=== PATIENT | male | born 1970 | race Caucasian/White ===

== ENCOUNTER 2020-07-07 14:57 | Emergency (ER) | payer BC, SELFPAY ==
[2020-07-07 15:16] VITALS: BP 142/91; PULSE 84; RESP 16; TEMP 36.8; O2SAT 98
--- NOTE | 2020-07-07 15:43 | ED.GENADULT ---
HPI - General Adult General Chief complaint: Upper Respiratory Infection Stated complaint: sore throat Time Seen by Provider: 07/07/20 15:43 Source: patient and RN notes reviewed Mode of arrival: ambulatory Limitations: no limitations History of Present Illness HPI narrative: 50-year-old (-) male presents with complaints of sore throat for 1 day. No treatment. No high fevers, drooling, neck or throat swelling. Pain is bilateral, mostly on the LT side. Hurts to swallow. Exacerbation factors consist of eating and drinking. No rhinorrhea. Nasal congestion. No voice change. No nausea, vomiting, or abdominal pain. Tolerating liquids well. Denies chills, dyspnea, difficulty swallowing, jaw pain, dental pain, facial pain, foreign body sensation, and rash. Remains active. The patient reports he have not been diagnosed with COVID-19. The patient reports he is not waiting for the results of a COVID-19 lab test. The patient reports he do not have fever, chills, weakness, fatigue, myalgia, or facial swelling. The patient reports he do not have a new or worsening cough or shortness of breath. Denies chest pain. The patient reports he do not have any loss of taste, and diarrhea. Denies recent traveling. Denies concerns for COVID-19 or exposures been home with limited outdoor exposure except for essential household needs, work, and return home. At this time, patient is not suspected of having COVID-19. Some parts of this dictation were generated by voice recognition software and may contain typographical and/or grammatical inaccuracies. Related Data Home Medications Medication Instructions Recorded Confirmed amlodipine 07/07/20 glipizide mg 07/07/20 hydrochlorothiazide 07/07/20 losartan 07/07/20 metformin mg 07/07/20 Allergies Allergy/AdvReac Type Severity Reaction Status Date / Time Penicillins Allergy Intermediate Rash Verified 09/23/18 16:54 Review of Systems Review of Systems: Narrative: CONSTITUTIONAL: Denies fever, chills, sweats. EYES: Denies visual changes, redness, discharge. ENT: Denies rhinorrhea, otalgia. Complains of sore throat, congestion. CARDIOVASCULAR: Denies chest pain, palpitations, edema. RESPIRATORY: Denies dyspnea, wheezing, cough. GASTROINTESTINAL: Denies abdominal pain, nausea, vomiting, diarrhea. GENITOURINARY: Denies dysuria, hematuria, abnormal discharge. SKIN: Denies rash or itching. MUSCULOSKELETAL: Denies acute back pain, joint pain, or myalgia. NEUROLOGIC: Denies numbness or focal weakness. PSYCHIATRIC: Denies anxiety or depression. All systems reviewed & are unremarkable except as noted in HPI and below. FOR[facility]LY [facility], LATER [facility] Past Medical History Medical History (Updated 07/08/20 @ 00:00 by Cristina Pacheco) Diabetes Hypertension Surgical History Surgical History (Updated 07/07/20 @ 15:53 by ABRAM Covarrubias) No significant past surgical history Family History Family History (Updated 07/07/20 @ 15:55 by ABRAM Covarrubias) Father , at age 49 Brain aneurysm Mother , had 2 episodes of cancer unknown type to patient Cancer Social History Social History (Updated 07/07/20 @ 15:55 by ABRAM Covarrubias) Smoking status: Never smoker Tobacco type: cigarettes Second hand tobacco smoke exposure: No Alcohol intake: never Substance use: never Living arrangements: with family Occupation/Education: occupation Gender identity (if verbalized by the patient): Male Sexual Orientation (if Verbalized by the Patient): Straight or Heterosexual Comments At time of signature, agree with nurse past medical, surgical, social, and family history. There is no relevant family history pertinent to the presenting complaint. Exam Narrative: Exam Narrative: GENERAL: This is a well-nourished, well-developed patient, in no apparent distress. Speaks in full sentences without deficits and ambulates with steady gait with
== END 2020-07-07 16:05 | disposition home or self-care (01) ==
PROVIDERS: Emergency Provider Nurse Practitioner Family
DX: J02.9 Acute pharyngitis, unspecified (principal); Z20.828 Contact with and (suspected) exposure to other viral communicable diseases; E11.9 Type 2 diabetes mellitus without complications; I10 Essential (primary) hypertension
CPT/HCPCS: 87081; 87804; 87880; 99213; G0463

== ENCOUNTER 2021-12-30 16:39 | Observation (INO) | payer OTHER, SELFPAY ==
[2021-12-30] VITALS (22 sets, daily range): BP systolic 112–140; BP diastolic 58–95; PULSE 77–112; RESP 9–24; TEMP 36.6–37; O2SAT 95–100; BMI 55.2
--- NOTE | ~2021-12-30 | XR_ITS ---
EXAMINATION: XR chest 2V DATE: 12/30/2021 17:02 INDICATION: Palpitations. TECHNIQUE: Frontal and lateral views of the chest were obtained. COMPARISON: Chest 2 views 09/23/2018 FINDINGS: The chest demonstrates clear lungs without pneumonia, pleural effusion, or pneumothorax. Th e heart size is normal. IMPRESSION: 1. No acute cardiopulmonary disease. Reviewed, dictated and finalized at location A.
--- NOTE | 2021-12-30 16:50 | ECG_ITS ---
Measurements Intervals [place] Rate: 114 P: [place]: 0 QRS: 28 QRSD: 96 T: 0 QT: 339 QTc: 468 Interpretive Statements ATRIAL FIBRILLATION WITH RAPID VENTRICULAR RESPONSE MINIMAL ST DEPRESSION [0.025+ mV ST DEPRESSION] ABNORMAL RHYTHM ECG NO PREVIOUS ECG AVAILABLE FOR COMPARISON Electronically Signed On 12-30-2021 20:28:52 CDT by Kimberly Dallas M.D.
[2021-12-30 17:06] LABS: Basophils Percent Auto 0.3 % (0.2-1.2); Eosinophils Absolute Auto 0.2 K/mm3 (0-0.3); Eosinophils Percent Auto 2.7 % (0-4.4); Hematocrit 42.8 % (42.0-52.0); Hemoglobin 14.8 g/dL (14.0-18.0); Immature Granulocyte Absolute 0.01 K/mm3 (0.00-0.031); Immature Granulocyte Percent A 0.1 % (0-0.5); Lymphocytes Absolute Auto 1.57 K/mm3 (0.9-3.2); Lymphocytes Percent Auto 22.1 % (18.3-44.2); Mean Corpuscular HGB Conc 34.6 g/dl (32-36); Mean Corpuscular Hemoglobin 28.1 pg (26-34); Mean Corpuscular Volume 81.4 fl (80-100); Monocytes Absolute Auto 0.6 K/mm3 (0.1-0.6); Neutrophils Absolute Auto 4.7 K/mm3 (1.3-6.7); Neutrophils Percent Auto 65.8 % (45.5-73.1); Platelet Count Result 252 k/mm3 (150-375); Red Blood Count 5.26 M/mm3 (4.6-6.20); Red Cell Distribution Width 13.3 % (11.5-14.5); White Blood Count 7.1 K/mm3 (4.5-10.0)
[2021-12-30 17:16] LABS: Prothrombin Time 12.3 Seconds (11.1-14.7)
[2021-12-30 17:17] LABS: Alanine Aminotransferase 21 U/L (4-50); Albumin Level 4.4 g/dL (3.5-5.1); Alkaline Phosphatase 84 U/L (38-126); Anion Gap 11 mmol/L (8-16); Aspartate Amino Transferase 25 U/L (17-59); Bilirubin,Total 0.9 mg/dL (0.2-1.3); Blood Urea Nitrogen 15 mg/dL (9-20); Calcium 8.9 mg/dL (8.4-10.2); Carbon Dioxide 24 mmol/L (22-30); Chloride 101 mmol/L (98-107); Estimated CRCL calculation 125 ml/min; Estimated Glomerular Filt Rate > 60; Glucose 121 mg/dL (65-110); Lipase 85 U/L (23-300); Partial Thromboplastin Time 29.7 SECONDS (22.3-36.8); Potassium 2.9 mmol/L (3.4-5.0); Sodium 136 mmol/L (137-145)
[2021-12-30 17:28] LABS: Troponin I < 0.012 ng/mL (0.000-0.034)
--- NOTE | 2021-12-30 18:11 | ED.ARRPALP ---
HPI - Arrhythmia/Palpitations General Chief Complaint: Arrhythmia/Palpitations Stated Complaint: irregular heart beat Time Seen by Provider: 12/30/21 17:04 Source: patient Mode of arrival: ambulatory Limitations: no limitations History of Present Illness HPI narrative: 51-year-old with a history of hypertension, diabetes here with complaints of palpitations since last few hours. Patient states that he was having fluttering sensation in his chest checked his pulse was found to be fast and irregular. He denied any chest pain or chest discomfort no history of shortness of breath. Patient states by the time he came to the ER his heart rate has gone down .. Denies any previous history of palpitations or atrial fibrillation. complaint: palpitations and irregular heart beat Onset (ago): hour(s) (2) Duration: constant Severity: moderate Context: occurred during rest Associated symptoms: denies other symptoms Related Data Home Medications Medication Instructions Recorded Confirmed amlodipine 07/07/20 glipizide mg 07/07/20 hydrochlorothiazide 07/07/20 losartan 07/07/20 metformin mg 07/07/20 Allergies Allergy/AdvReac Type Severity Reaction Status Date / Time Penicillins Allergy Intermediate Rash Verified 09/23/18 16:54 Review of Systems Review of Systems: All systems reviewed & are unremarkable except as noted in HPI and below Constitutional: Constitutional: Reports no additional constitutional complaints Eyes: Eyes: Reports no additional eye complaints ENT: Reports system reviewed and no additional complaints, except as documented Cardiovascular: Cardiovascular: Reports as per HPI Respiratory: Respiratory: Reports no additional respiratory complaints Gastrointestinal: Gastrointestinal: Reports no additional gastrointestinal complaints Musculoskeletal: Musculoskeletal: Reports no additional musculoskeletal complaints Integumentary/Breasts: Skin/Breast: Reports system reviewed and no additional complaints, except as docu Neurologic: Reports system reviewed and no additional complaints, except as documented Psychiatric: Psychiatric: Reports no additional psychiatric complaints PMFSH Past Medical History Medical History Diabetes Hypertension Surgical History Surgical History No significant past surgical history Family History Family History Father , at age 49 Brain aneurysm Mother , had 2 episodes of cancer unknown type to patient Cancer Social History Social History Smoking status: Never smoker Tobacco type: cigarettes Second hand tobacco smoke exposure: No Alcohol intake: never Substance use: never Gender identity (if verbalized by the patient): Male Sexual Orientation (if Verbalized by the Patient): Straight or Heterosexual Exam Narrative: GENERAL: Well-appearing, well-nourished, and in no acute distress. HEAD: Normocephalic, atraumatic. EYES: PERRLA and EOMI.. NECK: Supple. CHEST: Clear to auscultation. No respiratory distress. HEART: Irregular. No murmur heard. Normal peripheral pulses. ABDOMEN: Soft, nontender, nondistended, normal active bowel sounds. EXTREMITIES: Normal range of motion. No edema. SKIN: Warm, dry, no rash. NEURO: No focal deficits. Alert and oriented x3. PSYCH: Normal mood and affect. Course Course Emergency Course: Patient remains asymptomatic at this time however his EKG shows atrial fibrillation with heart rate of 114. Informed him about his lab work, x-ray findings. Discussed with Dr. Dallas recommended admission Vital Signs Vital signs: Vital Signs Temperature 36.6 C 12/30/21 16:47 Pulse Rate 94 12/30/21 16:47 Respiratory Rate 16 12/30/21 16:47 Blood Pressure 112/73 12/30/21 16:47 Pul
[2021-12-30] MEDS: ASPIRIN 81 MG CHEWABLE TABLET 324 MG PO (18:13)
[2021-12-30 20:41] LABS: Troponin I < 0.012 ng/mL (0.000-0.034)
--- NOTE | 2021-12-30 20:43 | PM.IMHP ---
H&P: HPI History of Present Illness Date/Time: 12/30/21 20:43 Chief Complaint: Chest discomfort Narrative: This is a 51-year-old male with past medical history significant for hypertension, morbid obesity, type 2 diabetes mellitus. Patient presented to the emergency room after he had an episode of flutter in his chest had some hot lightheadedness with it, no syncope near syncope, no diaphoresis no nausea no vomiting no abdominal pain patient used a home device to check his heart rate with told him that he was irregular and decided to present to the emergency room. Patient has been his usual state of health denies any chest pain with activity or at rest, no calves pain, no PND, no orthopnea. Preliminary workup was significant for EKG with atrial fibrillation. Patient has been admitted for further evaluation, management and treatment. Review of Systems Review of Systems: Fluttering sensation of the chest, abnormal heart rhythm detected by home device. Constitutional: Constitutional: Denies chills, Denies fever(s), Denies headache(s), Denies malaise, Denies night sweats, Denies poor appetite and Denies weakness Eyes: Eyes: Denies change in vision ENT: Denies dysphagia, Denies vertigo, Denies dizziness, Denies nasal discharge, Denies nasal obstruction and Denies odynophagia Cardiovascular: Cardiovascular: Denies chest pain at rest, Denies chest pain with activity, Denies edema, Reports irregular heart rhythm, Reports lightheadedness, Denies radiating jaw, neck or arm pain, Denies palpitations, Denies dyspnea on exertion and Denies orthopnea Respiratory: Respiratory: Denies cough, Denies excessive phlegm production and Denies dyspnea Gastrointestinal: Gastrointestinal: Denies abdominal pain, Denies dyspepsia, Denies heartburn, Denies diarrhea, Denies nausea and Denies vomiting Genitourinary: Genitourinary: Denies dysuria and Denies flank pain Musculoskeletal: Musculoskeletal: Denies myalgias, Denies arthralgias and Denies joint swelling Integumentary/Breasts: Skin/Breast: Denies rash Neurologic: Denies syncope, Denies focal weakness and Denies Sensory deficit (Neuro) Psychiatric: Psychiatric: Reports no additional psychiatric complaints and Reports as per HPI Endocrine: Endocrine: Denies cold intolerance, Denies heat intolerance, Denies polyphagia, Denies polydipsia and Denies palpitations Hematologic/Lymphatic: Hematologic/Lymphatic: Reports no additional hematologic/lymphatic complaints and Reports as per HPI Allergic/Immunologic: Allergic/Immunologic: Reports no additional allergic/immunologic complaints and Reports as per HPI [facility] Past Medical History Medical History (Updated 12/31/21 @ 04:15 by Katelin Alvarado MD) Diabetes Hypertension Surgical History Surgical History No significant past surgical history Family History Family History Father , at age 49 Brain aneurysm Mother , had 2 episodes of cancer unknown type to patient Cancer Social History Social History Smoking status: Never smoker Tobacco type: cigarettes Second hand tobacco smoke exposure: No Alcohol intake: never Substance use: never Gender identity (if verbalized by the patient): Male Sexual Orientation (if Verbalized by the Patient): Straight or Heterosexual Spiritual care concerns: No Meds Home Medications and Allergies Home Medications Medication Instructions Recorded Confirmed Type amlodipine 10 mg PO DAILY 07/07/20 12/30/21 History glipizide 5 mg PO DAILY 07/07/20 12/30/21 History hydrochlorothiazide 25 mg PO DAILY 07/07/20 12/30/21 History losartan 50 mg PO DAILY 07/07/20 12/30/21 History metformin 500 mg PO BID 07/07/20 12/30/21 History Allergies Allergy/AdvReac Type Severity Reaction Status Date / Time Penicillins Allergy
--- NOTE | 2021-12-30 20:59 | ADMGEN ---
This patient, Pierce Smith, was admitted to [facility] on 12/15 at approx 2030. Patient/family oriented to hospital policies and general routines including ID bracelet, bed and alarms, visiting hours, pain management, procedures, bathroom and other care routines, personal items, smoking policy, room service/diet, and visiting hours. Information on how to activate the Rapid Response Team has been discussed. Patient/Family are encouraged to report perceived risks to care and to ask questions if they do not understand what they are told or what they should do.
[2021-12-30] MEDS: ENOXAPARIN 100 MG/ML SYRINGE 185 MG SUB-Q (22:18)
[2021-12-30 22:50] LABS: Troponin I < 0.012 ng/mL (0.000-0.034)
[2021-12-31] VITALS (11 sets, daily range): BP systolic 126–145; BP diastolic 81–93; PULSE 63–80; RESP 15–20; TEMP 35.7–36.9; O2SAT 90–100
--- NOTE | 2021-12-31 | ECHO_ITS ---
Patient Info Name: Pierce Smith Age: 51 years : 1970 Gender: Male Ht: 71 in Wt: 410 lbs BSA: 3.16 m2 HR: 68 bpm BP: 138 / 83 mmHg Heart Rhythm: Sinus Rhythm Technical Quality: Good Exam Date: 12/31/2021 3:06 PM Exam Location: [facility] Pulmonary Exam Room: ICU3 Patient Status: Outpatient Admit Date: 12/30/2021 Staff Ordering Physician: Yuri Ford MD Line Repairer: Henny Ureña RDCS Attending Provider: Sarah Whitfield PA-C Exam Type: CA echo doppler color flow Study Info Indications - NEW ONSET AFIB Complete two-dimensional, color flow and Doppler transthoracic echocardiogram is performed. Summary 1. Complete two-dimensional, color flow and Doppler transthoracic echocardiogram is performed. 2. Normal left ventricular size with mild concentric hypertrophy. Good systolic function of all segments with no segmental wall motion abnormalities. Grade 1 diastolic dysfunction is present. Ejection fraction is 65-70%. 3. Right ventricular chamber dimension is mildly enlarged, though not well visualized.. 4. Left atrial chamber dimension is moderately enlarged. 5. Right atrial chamber dimension is mildly enlarged. 6. There is mild tricuspid valve regurgitation. 7. Mild pulmonary hypertension, estimated pulmonary arterial systolic pressure is 36 mmHg. 8. The aortic root size at the sinus of Valsalva is mildly dilated at 4.4 cm. The aortic root is mildly enlarged at 4.6 cm. 9. Normal sinus rhythm. Left Ventricle Left ventricular chamber dimension is normal. Left ventricular systolic function is normal, estimated at 65-70%. There is mildly increased left ventricular wall thickness. Left ventricular septal wall motion is normal. The left ventricular diastolic function is grade I diastolic dysfunction. Right Ventricle Right ventricular chamber dimension is mildly enlarged, though not well visualized.. Right ventricular systolic function is normal. Left Atria Left atrial chamber dimension is moderately enlarged. Right Atria Right atrial chamber dimension is mildly enlarged. Aortic Valve The aortic valve is trileaflet. There is no aortic valve sclerosis. There is no aortic valve stenosis. There is no aortic valve regurgitation. Pulmonic Valve The pulmonic valve is normal. There is no pulmonic valve stenosis. There is no pulmonic regurgitation. Mitral Valve The mitral valve has normal leaflets. There is no mitral valve stenosis. There is no mitral valve regurgitation. Tricuspid Valve The tricuspid valve leaflets are normal. There is no significant tricuspid valve stenosis. There is mild tricuspid valve regurgitation. Mild pulmonary hypertension, estimated pulmonary arterial systolic pressure is 36 mmHg. Pericardium/Pleural The pericardium appears normal. There is no pericardial effusion. Inferior Vena Cava Normal inferior vena cava with >50% collapse upon inspiration consistent with Empty right atrial pressure, 10 mmHg. Aorta The aortic root size at the sinus of Valsalva is mildly dilated at 4.4 cm. The aortic root is mildly enlarged at 4.6 cm. The prox ascending aorta size is mildly dilated. Left Ventricular Outflow Tract Name Value Normal LVOT 2D LVOT D
[2021-12-31 08:28] LABS: Glucose Point of Care 125 mg/dl (65-105)
[2021-12-31 09:44] LABS: Anion Gap 6 mmol/L (8-16); Blood Urea Nitrogen 13 mg/dL (9-20); Calcium 8.4 mg/dL (8.4-10.2); Carbon Dioxide 27 mmol/L (22-30); Chloride 105 mmol/L (98-107); Estimated CRCL calculation 138 ml/min; Estimated Glomerular Filt Rate > 60; Glucose 160 mg/dL (65-110); Potassium 3.2 mmol/L (3.4-5.0); Sodium 138 mmol/L (137-145)
[2021-12-31 09:45] LABS: Magnesium 2.1 mg/dL (1.6-2.3)
--- NOTE | 2021-12-31 10:23 | PM.CNCAR ---
Assessment and Plan Additional Plan - new paroxysmal atrial fibrillation. -hypokalemia on admission. -diabetes -hypertension -morbid obesity This is 51-year-old patient with past history of hypertension, diabetes and morbid obesity presents with palpitations. Potassium on admission 2.9. He reverted back to sinus rhythm. Feeling well today. -obtain echocardiogram -at this time will start anticoagulation with Eliquis 5 mg b.i.d.. This patient can be 1 of 2 types of patients: The 1st type is the patient who is aware of AFib at any time it happens. The 2nd type of patients is the patient that he can be aware but sometimes if AFib can happen at night he will not be aware of that. Upon follow-up visits we will obtain long-term monitoring like event monitor for about a month to see if there is any recurrence of AFib. If has no recurrence we might take him off the anticoagulation because this episode could have been triggered by hypokalemia. -if echocardiogram looks unremarkable he can be discharged home provided that hypokalemia is fixed. Recommend potassium supplements at home. History of Present Illness History of Present Illness Consult date/time: Date of service 12/31/21 10:23 Requesting physician: Yuri Ford MD Consult reason: atrial fibrillation Reason For Visit: New onset A. fib Narrative: This is 51-year-old patient with past medical history of hypertension, diabetes, morbid obesity who presents to the hospital because of palpitations. Was found to have AFib. He stated that yesterday around 4:00 p.m. he started to feel palpitations associated with vague funny feeling. Denied chest pain or shortness of breath, lower extremity edema, dizziness or syncope. Never had this feeling before. Does not drink alcohol. Never smoked cigarettes. He drinks 6 diet Cokes per day. Denies family history of heart disease. He does snore at night but was not diagnosed with sleep apnea. Serum potassium on admission 2.9, sodium 136. Serum creatinine 1 , hemoglobin A1c 5.9, troponins x3 negative. EKG reviewed and was myself shows AFib with RVR and nonspecific ST, T changes. Review of Systems Constitutional: Constitutional: Denies chills, Denies fever(s) and Denies poor appetite Eyes: Eyes: Denies eye discharge, Denies loss of vision, Denies eye pain and Denies photophobia ENT: Denies dizziness, Denies epistaxis, Denies nasal congestion and Denies sore throat Cardiovascular: Cardiovascular: Denies chest pain, Denies syncope, Denies pedal edema, Denies leg edema, Reports palpitations, Denies dyspnea, Denies dyspnea on exertion and Denies orthopnea Respiratory: Respiratory: Denies cough, Denies dyspnea, Denies dyspnea on exertion and Denies wheezing Gastrointestinal: Gastrointestinal: Denies abdominal pain, Denies diarrhea, Denies nausea and Denies vomiting Genitourinary: Genitourinary: Denies hematuria, Denies genital lesions and Denies dysuria Musculoskeletal: Musculoskeletal: Denies arthralgias, Denies joint swelling and Denies numbness Integumentary/Breasts: Skin/Breast: Denies pruritus and Denies rash Neurologic: Denies dizziness, Denies syncope, Denies loss of vision and Denies numbness Psychiatric: Psychiatric: Denies anxiety and Denies depression Endocrine: Endocrine: Denies cold intolerance, Denies heat intolerance and Denies palpitations Hematologic/Lymphatic: Hematologic/Lymphatic: Denies easy bleeding and Denies easy bruising Allergic/Immunologic: Allergic/Immunologic: Denies urticaria and Denies wheezing PMFSH Past Medical History Medical History Diabetes Hypertension Surgical History Surgical History No significant past surgical history Family History Family History Father , at age 49 Brain aneurysm Mother , had 2 episod
[2021-12-31 10:24] LABS: Hemoglobin A1C 5.9 % (<5.7)
[2021-12-31] MEDS: POTASSIUM CHLORIDE 20 MEQ TABLET 40 MEQ PO ×2 (11:08→18:11)
[2021-12-31] MEDS: APIXABAN 5 MG TABLET PO ×2 (11:09→20:17)
[2021-12-31 11:46] LABS: Glucose Point of Care 127 mg/dl (65-105)
--- NOTE | 2021-12-31 16:04 | PM.IMPN ---
Progress Note: A&P Assessment and Plan (1) Atrial fibrillation: Qualifiers: Atrial fibrillation type: unspecified Qualified Code(s): I48.91 - Unspecified atrial fibrillation Code(s): I48.91 - Unspecified atrial fibrillation Status: Acute Assessment and Plan: New onset atrial fibrillation EKG on presentation showed atrial fibrillation with rapid ventricular response with heart rate 114 Rate is controlled at this time and the patient has converted back to sinus rhythm Appreciate cardiology consultation Echocardiogram is pending Started Eliquis 5 mg b.i.d. He will need outpatient cardiology follow-up May have been triggered due to acute hypokalemia (2) Hypokalemia: Code(s): E87.6 - Hypokalemia Status: Acute Assessment and Plan: Potassium was 2.9 on presentation Review of prior labs demonstrate patient to have a chronically low potassium Potassium 3.2 today Received 40 mEq PO KCl Repeat potassium level is pending Continue with potassium supplementation 20 mEq daily. He will need to remain on this. (3) Hypertension: Code(s): I10 - Essential (primary) hypertension Status: Acute Assessment and Plan: Blood pressure reviewed and has been reasonably controlled. Last BP 145/93 Continue home regimen of losartan, hydrochlorothiazide, amlodipine Monitor blood pressure trends (4) Diabetes: Code(s): E11.9 - Type 2 diabetes mellitus without complications Status: Acute Assessment and Plan: A1c is 5.9 Continue Accu-Cheks, sliding scale insulin, hypoglycemic protocol Monitor glucose trends and adjust medicine regimen as needed Home metformin and glipizide on hold Subjective Date/time seen: 12/31/21 16:04 Interval history: Date of service: 12/31/2021 Pierce Smith is a 51-year-old male with a history of hypertension and diabetes who is seen in follow-up for atrial fibrillation. The patient states that yesterday evening he developed a funny feeling and noticed a fluttering sensation in his chest. He checked his pulse at home in stated that it was jumping back and forth between 80-120. He then checked his blood pressure which was fine but showed a regular heart rate. He states he had an odd feeling in his face and he felt flushed. At this time, his symptoms have resolved entirely. He had no longer is endorsing palpitations. No fluttering. Denies dizziness or lightheadedness. Denies significant fatigue. Denies weakness. No nausea, vomiting. No chest pain. He has no additional concerns. He states that over the past month he has been increasing his daily activity and has intentionally lost about 15 lbs. He states that his blood sugars have been very well controlled since this. He also checks his blood pressures intermittently and notes that they have been well controlled. Review of Systems Review of Systems: All systems reviewed & are unremarkable except as noted in HPI and below Exam Narrative: General: Obese, well-appearing 51 year-old male, sitting up in bed, comfortable, NARD Neuro: awake, alert and oriented x4, speech clear, no focal neuro deficits noted HEENMT: normocephalic, atraumatic, EOMI, sclerae anicteric, moist oral mucosa Respiratory: clear to auscultation bilaterally, nonlabored breathing Cardio: regular rate, regular rhythm with S1-S2 Abdomen: nondistended, normoactive bowel sounds, soft, nontender to palpation Extremities: Trace edema, no erythema or tenderness to palpation, DP pulses 2+ bilaterally Skin: no rashes or lesions, warm and dry Psych: appropriate mood and affect, judgment and insight intact Objective Data Vital Signs Vital Signs: Vital Signs - 24 hr 12/30/21 16:47 12/30/21 17:17 12/30/21 17:28 Temperature 98 F 98.6 F Pulse Rate 94 106 H 99 Respiratory Rate 16 16 18 Blood Pressure 112/73 134/71 Pulse Oximetry 100 98 96 12/30/21 17:30 12/30/21 17:31 12/30/21
[2021-12-31 16:43] LABS: Potassium 3.2 mmol/L (3.4-5.0)
--- NOTE | 2021-12-31 16:58 | PC.NURSE ---
Report given to AURELIA Beltran with [address] [place] [address] at 1640. All questions answered and plan of care reviewed. Patient to go to room 242.
--- NOTE | 2021-12-31 16:58 | PC.NURSE ---
This patient, Pierce Smith, was [facility] from [facility] on 12/31/21 at 1658. Patient/family oriented to unit policies and routines
[2021-12-31 17:08] LABS: Glucose Point of Care 102 mg/dl (65-105)
[2021-12-31 17:12] LABS: Glucose Point of Care 116 mg/dl (65-105)
[2021-12-31 21:06] LABS: Glucose Point of Care 116 mg/dl (65-105)
[2022-01-01] VITALS: BP 141/80; PULSE 65; PULSE 66; RESP 18; TEMP 35.7; O2SAT 97
[2022-01-01 04:00] VITALS: BP 156/85; PULSE 67; PULSE 74; RESP 20; TEMP 36.1; O2SAT 99
[2022-01-01 06:07] LABS: Anion Gap 4 mmol/L (8-16); Blood Urea Nitrogen 11 mg/dL (9-20); Calcium 8.1 mg/dL (8.4-10.2); Carbon Dioxide 27 mmol/L (22-30); Chloride 105 mmol/L (98-107); Estimated CRCL calculation 154 ml/min; Estimated Glomerular Filt Rate > 60; Glucose 111 mg/dL (65-110); Potassium 3.3 mmol/L (3.4-5.0); Sodium 136 mmol/L (137-145)
[2022-01-01 07:37] LABS: Glucose Point of Care 103 mg/dl (65-105)
[2022-01-01] MEDS: POTASSIUM CHLORIDE 20 MEQ TABLET.ER PO (07:38)
[2022-01-01] MEDS: APIXABAN 5 MG TABLET PO (07:38)
[2022-01-01 08:00] VITALS: PULSE 83
[2022-01-01 10:00] VITALS: BP 151/79; PULSE 70; RESP 20; TEMP 36.4; O2SAT 99
--- NOTE | 2022-01-01 11:09 | P.DS_ITS ---
DS: Admitting Diagnosis Discharge Date 01/01/2022 Admitting Diagnosis Atrial fibrillation DS: Discharge Diagnosis Discharge Diagnosis (1) Atrial fibrillation: Qualifiers: Atrial fibrillation type: unspecified Qualified Code(s): I48.91 - Unspecified atrial fibrillation Code(s): I48.91 - Unspecified atrial fibrillation Status: Acute Assessment and Plan: New onset atrial fibrillation * EKG on presentation showed atrial fibrillation with rapid ventricular response with heart rate 114 * Patient self-converted back to sinus rhythm * Episode may have been triggered by acute hypokalemia * Rate remained controlled during hospitalization * Patient was seen in consultation by Cardiology * He was started on Eliquis 5 mg b.i.d. Educated on risks vs benefits of anticoagulation. Patient verbalized understanding and agrees to proceed. * Echocardiogram completed. Awaiting interpretation. Patient will be contacted with these results * Outpatient Cardiology scheduled for 02/08/2022. He will have further monitoring with an event monitor as an outpatient (2) Hypokalemia: Code(s): E87.6 - Hypokalemia Status: Acute Assessment and Plan: Potassium was 2.9 on presentation * Review of prior labs demonstrate patient to have a chronically low potassium * Potassium levels were supplemented and did improve * Magnesium within normal limits * Hydrochlorothiazide discontinued * Initiated on spironolactone 25 mg daily as an alternative and this should improve his potassium levels * Will not continue oral potassium supplementation with the addition of spironolactone * Repeat potassium level in 1 week to ensure remaining stable. Follow-up with PCP (3) Hypertension: Code(s): I10 - Essential (primary) hypertension Status: Acute Assessment and Plan: Blood pressure reviewed and was reasonably well controlled * Continue home regimen of losartan and amlodipine * HCTZ discontinued. Started on spironolactone 25 mg daily * Monitor blood pressures at home intermittently and follow-up with PCP in 1 week for blood pressure check (4) Diabetes: Code(s): E11.9 - Type 2 diabetes mellitus without complications Status: Acute Assessment and Plan: A1c is 5.9 * Patient reports he is occasionally having low sugars in the 60s. * He has made significant dietary modifications and his blood sugars have improved and A1c has decreased * At this time will hold glipizide given the patients improved A1c and episodes of hypoglycemia * Continue to monitor blood sugars at home and follow-up with PCP for further management. The patient would like to come off of his oral hypoglycemics and manage with diet alone. DS: Summary Hospital Course Hospital Course: Date of admission: 12/30/2021 Date of discharge 01/01/2022 Pierce Smith is a 51-year-old male with a history of hypertension and diabetes who presented to the emergency department on 12/30/2021 with complaints of fluttering in his chest. He was found to be in atrial fibrillation with rapid ventricular response. He was admitted to the hospitalist service for further evaluation management was seen in consultation by cardiology. Patient converted to sinus rhythm. His potassium was monitored and replaced as needed. He was initiated on Eliquis for stroke prophylaxis and will follow-up with cardiology as an outpatient for further monitoring. His symptoms resolved and he was feeling back to his usual state of health. Given his overall improvement, he was determined to no longer
--- NOTE | 2022-01-01 11:09 | PM.DS ---
DS: Admitting Diagnosis Discharge Date 01/01/2022 Admitting Diagnosis Atrial fibrillation DS: Discharge Diagnosis Discharge Diagnosis (1) Atrial fibrillation: Qualifiers: Atrial fibrillation type: unspecified Qualified Code(s): I48.91 - Unspecified atrial fibrillation Code(s): I48.91 - Unspecified atrial fibrillation Status: Acute Assessment and Plan: New onset atrial fibrillation EKG on presentation showed atrial fibrillation with rapid ventricular response with heart rate 114 Patient self-converted back to sinus rhythm Episode may have been triggered by acute hypokalemia Rate remained controlled during hospitalization Patient was seen in consultation by Cardiology He was started on Eliquis 5 mg b.i.d. Educated on risks vs benefits of anticoagulation. Patient verbalized understanding and agrees to proceed. Echocardiogram completed. Awaiting interpretation. Patient will be contacted with these results Outpatient Cardiology scheduled for 02/08/2022. He will have further monitoring with an event monitor as an outpatient (2) Hypokalemia: Code(s): E87.6 - Hypokalemia Status: Acute Assessment and Plan: Potassium was 2.9 on presentation Review of prior labs demonstrate patient to have a chronically low potassium Potassium levels were supplemented and did improve Magnesium within normal limits Hydrochlorothiazide discontinued Initiated on spironolactone 25 mg daily as an alternative and this should improve his potassium levels Will not continue oral potassium supplementation with the addition of spironolactone Repeat potassium level in 1 week to ensure remaining stable. Follow-up with PCP (3) Hypertension: Code(s): I10 - Essential (primary) hypertension Status: Acute Assessment and Plan: Blood pressure reviewed and was reasonably well controlled Continue home regimen of losartan and amlodipine HCTZ discontinued. Started on spironolactone 25 mg daily Monitor blood pressures at home intermittently and follow-up with PCP in 1 week for blood pressure check (4) Diabetes: Code(s): E11.9 - Type 2 diabetes mellitus without complications Status: Acute Assessment and Plan: A1c is 5.9 Patient reports he is occasionally having low sugars in the 60s. He has made significant dietary modifications and his blood sugars have improved and A1c has decreased At this time will hold glipizide given the patients improved A1c and episodes of hypoglycemia Continue to monitor blood sugars at home and follow-up with PCP for further management. The patient would like to come off of his oral hypoglycemics and manage with diet alone. DS: Summary Hospital Course Hospital Course: Date of admission: 12/30/2021 Date of discharge 01/01/2022 Pierce Smith is a 51-year-old male with a history of hypertension and diabetes who presented to the emergency department on 12/30/2021 with complaints of fluttering in his chest. He was found to be in atrial fibrillation with rapid ventricular response. He was admitted to the hospitalist service for further evaluation management was seen in consultation by cardiology. Patient converted to sinus rhythm. His potassium was monitored and replaced as needed. He was initiated on Eliquis for stroke prophylaxis and will follow-up with cardiology as an outpatient for further monitoring. His symptoms resolved and he was feeling back to his usual state of health. Given his overall improvement, he was determined to no longer require inpatient care was felt to be stable for discharge. Discussed with the patient worrisome signs and symptoms for which to return and he was educated on his medications. He was discharged in hemodynamically stable condition on 01/01/2022. Status at Discharge Functional status at discharge: independent ambulation Overall status at discharge: patient is back to baseline Time Spent with P
[2022-01-01 11:16] LABS: Glucose Point of Care 110 mg/dl (65-105)
[2022-01-01] MEDS: LOSARTAN POTASSIUM 50 MG TABLET PO (11:27)
[2022-01-01] MEDS: amLODIPine BESYLATE 5 MG TABLET PO (11:27)
== END 2022-01-01 11:59 | disposition home or self-care (01) ==
LOC: ANHED 18:18 → ANHCPC 19:42 → ANH2MED 01-01 07:19 → ANHCPC 01-04 15:08
PROVIDERS: Internal Medicine Cardiovascular Disease; Physician Assistant; Admitting Provider Family Medicine; Emergency Provider Family Medicine; PCP Internal Medicine; Visit Provider Family Medicine
DX: I48.0 Paroxysmal atrial fibrillation (principal); E87.6 Hypokalemia; E11.9 Type 2 diabetes mellitus without complications; I10 Essential (primary) hypertension; I36.1 Nonrheumatic tricuspid (valve) insufficiency; I27.20 Pulmonary hypertension, unspecified; Z79.84 Long term (current) use of oral hypoglycemic drugs; E66.01 Morbid (severe) obesity due to excess calories; Z68.43 Body mass index [BMI] 50.0-59.9, adult
CPT/HCPCS: 36415; 71046; 80048; 80053; 82948; 83036; 83690; 83735; 84132; 84484; 85025; 85610; 85730; 93005; 93306; 96372; 99285; A9270; G0378; J1650

== ENCOUNTER 2023-07-08 17:04 | Emergency (ER) | payer OTHER, SELFPAY ==
[2023-07-08] VITALS (10 sets, daily range): BP systolic 125–142; BP diastolic 68–90; PULSE 57–76; RESP 11–21; TEMP 36.6–36.7; O2SAT 100
--- NOTE | ~2023-07-08 | XR_ITS ---
XR chest 2V DATE: 07/08/2023 17:30 INDICATION: Chest pain TECHNIQUE: PA and lateral views COMPARISON: 12/30/2021 2 view chest FINDINGS: Heart size is within normal range. No pulmonary infiltrate or consolidation, pleural effusi on or pneumothorax. Pulmonary vascularity appears within upper limits of normal. Degenerative spurring of the thoracic spine. IMPRESSION: No active cardiopulmonary disease Reviewed, dictated and finalized at location A.
--- NOTE | 2023-07-08 17:06 | ECG_ITS ---
Measurements Intervals [place] Rate: 68 P: 76 SD: 233 QRS: 11 QRSD: 108 T: 33 QT: 390 QTc: 416 Interpretive Statements SINUS RHYTHM WITH MARKED SINUS ARRHYTHMIA WITH FIRST DEGREE AV BLOCK BORDERLINE ECG COMPARED TO ECG 12/30/2021 16:44:33 SINUS RHYTHM NOW PRESENT SINUS ARRHYTHMIA NOW PRESENT FIRST DEGREE AV BLOCK NOW PRESENT Electronically Signed On 07-08-2023 20:23:29 CDT by Troy Bhatia D.O.
[2023-07-08 17:22] LABS: Basophils Percent Auto 0.4 % (0.2-1.2); Eosinophils Absolute Auto 0.2 K/mm3 (0-0.3); Eosinophils Percent Auto 3.1 % (0-4.4); Hematocrit 40.6 % (42.0-52.0); Hemoglobin 13.4 g/dL (14.0-18.0); Immature Granulocyte Absolute 0.02 K/mm3 (0.00-0.031); Immature Granulocyte Percent A 0.4 % (0-0.5); Lymphocytes Absolute Auto 1.28 K/mm3 (0.9-3.2); Lymphocytes Percent Auto 23.4 % (18.3-44.2); Mean Corpuscular Hemoglobin 28.8 pg (26-34); Mean Corpuscular Volume 87.3 fl (80-100); Mean Platelet Volume 9.1 fl (7.4-10.4); Monocytes Absolute Auto 0.5 K/mm3 (0.1-0.6); Monocytes Percent Auto 9.3 % (2.6-8.5); Neutrophils Absolute Auto 3.5 K/mm3 (1.3-6.7); Neutrophils Percent Auto 63.4 % (45.5-73.1); Platelet Count Result 187 k/mm3 (150-375); Red Blood Count 4.65 M/mm3 (4.6-6.20); Red Cell Distribution Width 13.5 % (11.5-14.5); White Blood Count 5.5 K/mm3 (4.5-10.0)
[2023-07-08 17:34] LABS: Alanine Aminotransferase 19 U/L (6-50); Albumin Level 4.2 g/dL (3.5-5.1); Alkaline Phosphatase 67 U/L (38-126); Anion Gap 8 mmol/L (8-16); Aspartate Amino Transferase 19 U/L (17-59); Bilirubin,Total 0.9 mg/dL (0.2-1.3); Blood Urea Nitrogen 19 mg/dL (9-20); Calcium 8.6 mg/dL (8.4-10.2); Carbon Dioxide 23 mmol/L (22-30); Chloride 106 mmol/L (98-107); Estimated Glomerular Filt Rate > 60; Glucose 109 mg/dL (65-110); Lipase 83 U/L (23-300); Potassium 3.8 mmol/L (3.4-5.0); Sodium 137 mmol/L (137-145)
[2023-07-08 17:39] LABS: INR 1.1; Prothrombin Time 14.8 Seconds (11.1-14.7)
[2023-07-08 17:40] LABS: Partial Thromboplastin Time 32.5 SECONDS (22.3-36.8)
[2023-07-08 17:44] LABS: Troponin I < 0.012 ng/mL (0.000-0.034)
[2023-07-08] MEDS: ASPIRIN 81 MG CHEWABLE TABLET 324 MG PO (18:05)
[2023-07-08 20:43] LABS: Troponin I < 0.012 ng/mL (0.000-0.034)
--- NOTE | 2023-07-09 00:04 | ED.CHESTPAIN ---
HPI - Chest Pain General Chief Complaint: Chest Pain Stated Complaint: jaw pain and chest discomfort - increased BP Time Seen by Provider: 07/08/23 23:17 Source: patient Limitations: no limitations History of Present Illness HPI narrative: Patient is a 53-year-old male presents to the emergency department complaining of feeling off today around about 5 PM while he was doing some chores around the house noting that he felt slightly lightheaded, heart rate was increased to the mid 90s, he checked his blood pressure because he was feeling anxious and his blood pressure was high via a wrist cuff at 165/90 and he was also feeling what he reports to be indigestion which he gets frequently and describes the sensation as a sharp pain in his mid to left side of his chest and the symptoms lasted a few hours and then resolved and have not returned since being in the emergency department he has not had any further symptoms and feels well at this time. Patient also states that he had a little bit of stiffness in his jaw and wanted to get his heart checked out. Patient is that he has a history of atrial fibrillation and is on Eliquis and taking this as prescribed. Patient has not been taking all of his blood pressure medications as prescribed without any recent changes. Patient notes that he is no longer on any diabetic medications as he did weight loss and no longer requires them. Patient stated did not try anything for the discomfort, denies radiation of the discomfort. Patient notes that he does not do a blood pressure log at home. Patient denies fever, cough, dysuria, hematuria, abdominal pain, nausea, vomiting, diaphoresis, syncope, lower extremity swelling unilaterally, history of blood clots, diarrhea, melena, sore throat, congestion, palpitations. Patient states he does not feel like his history of atrial fibrillation as he feels that what ever was occurring in the past and has not had any further symptoms of this. Patient notes that he has known to cardiology through the [facility] system and also see his primary care physician on a regular basis. Patient denies family history of early heart disease less than 65 years old, patient denies smoking, denies history of hyperlipidemia. Patient denies numbness or weakness. Related Data Home Medications Medication Instructions Recorded Confirmed amlodipine 10 mg tablet 10 mg PO DAILY 07/07/20 12/30/21 glipizide 5 mg tablet 5 mg PO DAILY 07/07/20 12/30/21 losartan 50 mg tablet 50 mg PO DAILY 07/07/20 12/30/21 metformin 500 mg tablet 500 mg PO BID 07/07/20 12/30/21 Allergies Allergy/AdvReac Type Severity Reaction Status Date / Time Penicillins Allergy Intermediate Rash Verified 07/08/23 17:05 Review of Systems Review of Systems: A 10 system review of systems was completed on the patient and is negative except for what is stated in the HPI. Nursing and ancillary documentation was reviewed. PMFSH Past Medical History Medical History Diabetes Hypertension Surgical History Surgical History No significant past surgical history Family History Family History Father , at age 49 Brain aneurysm Mother , had 2 episodes of cancer unknown type to patient Cancer Social History Social History Smoking status: Never smoker Tobacco type: cigarettes Second hand tobacco smoke exposure: No Alcohol intake: never Substance use: never Living arrangements: with family Occupation/Education: occupation Gender identity (if verbalized by the patient): Male Sexual Orientation (if Verbalized by the Patient): Straight or Heterosexual Spiritual care concerns: No Comments At time of signature, I have reviewed and agree with nursing past medical, surgica
[2023-07-09 00:12] VITALS: PULSE 59; RESP 16; O2SAT 100
[2023-07-09 00:15] VITALS: PULSE 56; RESP 17
[2023-07-09 00:16] VITALS: BP 128/72; PULSE 60; RESP 12; O2SAT 100
== END 2023-07-09 00:36 | disposition home or self-care (01) ==
PROVIDERS: Emergency Medicine; Emergency Provider Student in an Organized Health Care Education/Training Program; PCP Internal Medicine
DX: R07.89 Other chest pain (principal); I48.91 Unspecified atrial fibrillation; E11.9 Type 2 diabetes mellitus without complications; I10 Essential (primary) hypertension; Z79.01 Long term (current) use of anticoagulants; R94.31 Abnormal electrocardiogram [ECG] [EKG]; Z79.84 Long term (current) use of oral hypoglycemic drugs
CPT/HCPCS: 36415; 71046; 80053; 83690; 84484; 85025; 85610; 85730; 93005; 99284; A9270

== ENCOUNTER 2023-08-20 09:01 | Emergency (ER) | payer OTHER, SELFPAY ==
--- NOTE | 2023-08-20 09:04 | ED.URI ---
HPI - URI/Sore Throat General Chief Complaint: Upper Respiratory Infection Stated Complaint: sore throat left side Time Seen by Provider: 08/20/23 09:03 Source: patient Mode of arrival: ambulatory Limitations: no limitations History of Present Illness HPI Narrative: Pierce's a 53-year-old male patient presenting to the clinic today with complaints of a left-sided sore throat x3 days. Contacted his provider by [facility] and they prescribed him prednisone. He has been taking that over the last 2 days. Was also prescribed azithromycin however he has not picked this up-the provider told him to pick it up in a few days of prednisone was not helping. He wanted to be evaluated today as his symptoms are gradually getting worse and he want to make sure the azithromycin was the correct medication he should be on. Denies any drooling or difficulty breathing. States it is difficult to swallow at times due to the pain. No fever or chills. MD elicited complaint: sore throat Related Data Home Medications Medication Instructions Recorded Confirmed amlodipine 10 mg tablet 10 mg PO DAILY 07/07/20 08/20/23 glipizide 5 mg tablet 5 mg PO DAILY 07/07/20 08/20/23 losartan 50 mg tablet 50 mg PO DAILY 07/07/20 08/20/23 metformin 500 mg tablet 500 mg PO BID 07/07/20 08/20/23 azithromycin 250 mg tablet See Rx Instructions .Route .COMPLEX 08/20/23 08/20/23 prednisone 20 mg tablet 20 mg PO DAILY 08/20/23 08/20/23 Allergies Allergy/AdvReac Type Severity Reaction Status Date / Time Penicillins Allergy Intermediate Rash Verified 08/20/23 09:10 Review of Systems Review of Systems: Pertinent positives per HPI. Patient denies any fever, chills, rash, headache, visual changes, dizziness, cough, runny nose, shortness of breath, chest pain, palpitations, nausea, vomiting, diarrhea, constipation, abdominal pain, or any urinary issues. [facility] Past Medical History Medical History Diabetes Hypertension Surgical History Surgical History No significant past surgical history Family History Family History Father , at age 49 Brain aneurysm Mother , had 2 episodes of cancer unknown type to patient Cancer Social History Social History Smoking status: Never smoker Tobacco type: cigarettes Second hand tobacco smoke exposure: No Alcohol intake: never Substance use: never Living arrangements: with family Occupation/Education: occupation Gender identity (if verbalized by the patient): Male Sexual Orientation (if Verbalized by the Patient): Straight or Heterosexual Spiritual care concerns: No Comments At the time of my signature, I reviewed and agree with the nursing past medical, surgical, social, and family history. There is no relevant family history pertinent to the patient complaint. Exam Narrative: General: Well-developed, obese, in no apparent distress Head: Normocephalic, atraumatic Eyes: Pupils equally round and reactive to light bilaterally, EOM intact, sclera and conjunctive clear, no discharge, lids normal Ears: TMs intact and clear, ear canals clear, no drainage, grossly hearing normal. Nose: Nares patent, no discharge, no inflammation, no sinus tenderness. Mouth: Left oropharynx red and edematous with an edematous/red uvula, slight deviation to the left, without lesions or masses, good dentition, MMM. Neck: Supple, trachea midline, enlargement of anterior cervical nodes, no thyroid masses or goiter palpable. Cardio: Regular rate and rhythm, s1 and s2 normal, no murmur appreciated. Resp: Clear to auscultation bilaterally anteriorly and posteriorly, no rhonchi, rales, wheezing or rubs Course Course Emergency Course: Portions of this record may
[2023-08-20 09:11] VITALS: BP 147/88; PULSE 71; RESP 16; TEMP 37.1; O2SAT 99
[2023-08-20 09:14] VITALS: BP 147/88; PULSE 71; RESP 16; TEMP 37.1; O2SAT 99
== END 2023-08-20 09:23 | disposition short-term general hospital (02) ==
PROVIDERS: Emergency Provider Nurse Practitioner Family; PCP Internal Medicine
DX: J36 Peritonsillar abscess (principal); E11.9 Type 2 diabetes mellitus without complications; I10 Essential (primary) hypertension; Z79.899 Other long term (current) drug therapy; Z79.84 Long term (current) use of oral hypoglycemic drugs
CPT/HCPCS: 99212; G0463

== ENCOUNTER 2023-08-20 09:52 | Emergency (ER) | payer OTHER, SELFPAY ==
--- NOTE | ~2023-08-20 | CT_ITS ---
EXAMINATION: CT soft tissue neck w con DATE: 08/20/2023 11:38 INDICATION: Sore throat TECHNIQUE: Computed tomography (CT) of the neck was performed with 75 cc of Omnipaque 350 intravenous contrast. The dose-length product (DLP) was 632.45 mGy-cm. Automated exposure control and iterative reconstruction technique were employed. COMPARISON: None FINDINGS: There is a 2.7 x 2.6 cm soft tissue density in the left peritonsillar region. There is comp lete opacification of the right maxillary sinus. There are mildly prominent left cervical lymph nodes , likely reactive. There is a 3.3 cm nodule of the right thyroid lobe. The visualized lung apices are clear. There is moderate cervical spondylosis. IMPRESSION: 1. Left peritonsillar soft tissue density, probable early abscess. 3. Right thyroid nodule. Follow-up with nonemergent thyroid ultrasound is recommended. 3. Right maxillary sinusitis. Reviewed, dictated and finalized at location F. IMPRESSION: 1. Left peritonsillar soft tissue density, probable early abscess. 3. Right thyroid nodule. Follow-up with nonemergent thyroid ultrasound is recom mended. 3. Right maxillary sinusitis.
[2023-08-20 09:53] VITALS: BP 152/81; PULSE 75; RESP 20; TEMP 36.7; O2SAT 100
[2023-08-20 11:01] LABS: Eosinophils Percent Auto 0.1 % (0-4.4); Hematocrit 41.1 % (42.0-52.0); Hemoglobin 13.5 g/dL (14.0-18.0); Immature Granulocyte Absolute 0.06 K/mm3 (0.00-0.031); Immature Granulocyte Percent A 0.6 % (0-0.5); Lymphocytes Absolute Auto 0.89 K/mm3 (0.9-3.2); Lymphocytes Percent Auto 8.5 % (18.3-44.2); Mean Corpuscular HGB Conc 32.8 g/dl (32-36); Mean Corpuscular Hemoglobin 28.5 pg (26-34); Mean Corpuscular Volume 86.7 fl (80-100); Mean Platelet Volume 8.8 fl (7.4-10.4); Monocytes Absolute Auto 0.6 K/mm3 (0.1-0.6); Monocytes Percent Auto 5.8 % (2.6-8.5); Neutrophils Absolute Auto 8.9 K/mm3 (1.3-6.7); Platelet Count Result 224 k/mm3 (150-375); Red Blood Count 4.74 M/mm3 (4.6-6.20); Red Cell Distribution Width 13.5 % (11.5-14.5); White Blood Count 10.5 K/mm3 (4.5-10.0)
[2023-08-20 11:09] LABS: Alanine Aminotransferase 20 U/L (6-50); Albumin Level 4.3 g/dL (3.5-5.1); Alkaline Phosphatase 72 U/L (38-126); Anion Gap 7 mmol/L (8-16); Aspartate Amino Transferase 19 U/L (17-59); Bilirubin,Total 1.2 mg/dL (0.2-1.3); Blood Urea Nitrogen 11 mg/dL (9-20); Calcium 9.2 mg/dL (8.4-10.2); Carbon Dioxide 24 mmol/L (22-30); Chloride 107 mmol/L (98-107); Estimated CRCL calculation 153 ml/min; Estimated Glomerular Filt Rate > 60; Glucose 134 mg/dL (65-110); Potassium 3.8 mmol/L (3.4-5.0); Sodium 138 mmol/L (137-145)
--- NOTE | 2023-08-20 11:23 | ED.GENADULT ---
HPI - General Adult General Chief complaint: Unspecified Stated complaint: r/o peritonsiler abscess Time Seen by Provider: 08/20/23 10:56 Source: patient Mode of arrival: ambulatory Limitations: no limitations History of Present Illness HPI narrative: Patient is a 53 y/o male who presents to the ED with c/o sore throat. Patient reports he developed a sore throat last Tuesday. He had a telemedicine virtual visit on and was prescribed steroids, Prednisone 20mg BID. He has been taking these as prescribed but began noticing his tonsil and uvula swelling today. He went to an urgent care today and was referred here for further evaluation. Patient denies difficulty breathing or swallowing, reports pain with swallowing. Denies fevers. Denies other cough or cold symptoms, nausea, vomiting. Denies sick contacts. Patient did test positive for COVID-19 with a home test 3 weeks ago. Related Data Home Medications Medication Instructions Recorded Confirmed amlodipine 10 mg tablet 10 mg PO DAILY 07/07/20 08/20/23 glipizide 5 mg tablet 5 mg PO DAILY 07/07/20 08/20/23 losartan 50 mg tablet 50 mg PO DAILY 07/07/20 08/20/23 metformin 500 mg tablet 500 mg PO BID 07/07/20 08/20/23 azithromycin 250 mg tablet See Rx Instructions .Route .COMPLEX 08/20/23 08/20/23 prednisone 20 mg tablet 20 mg PO DAILY 08/20/23 08/20/23 Allergies Allergy/AdvReac Type Severity Reaction Status Date / Time Penicillins Allergy Intermediate Rash Verified 08/20/23 09:10 Review of Systems Review of Systems: CONSTITUTIONAL: Denies fever, chills, or sweats. ENT: See HPI. CARDIOVASCULAR: Denies chest pain, palpitations, or edema. RESPIRATORY: Denies cough or dyspnea. GASTROINTESTINAL: Denies abdominal pain, nausea, vomiting. MUSCULOSKELETAL: Denies back pain, joint pain, or myalgia. NEUROLOGIC: Denies headache, numbness, or weakness. All systems reviewed & are unremarkable except as noted in HPI and below PMFSH Past Medical History Medical History Diabetes Hypertension Surgical History Surgical History No significant past surgical history Family History Family History Father , at age 49 Brain aneurysm Mother , had 2 episodes of cancer unknown type to patient Cancer Social History Social History Smoking status: Never smoker Tobacco type: cigarettes Second hand tobacco smoke exposure: No Alcohol intake: never Substance use: never Living arrangements: with family Occupation/Education: occupation Gender identity (if verbalized by the patient): Male Sexual Orientation (if Verbalized by the Patient): Straight or Heterosexual Spiritual care concerns: No Exam Narrative: GENERAL: Well appearing, morbidly obese with BMI of 46.1, non-toxic, in no acute distress. HEAD: Normocephalic, atraumatic. ENT: Mucous membranes moist. No stridor, trismus. Voice slightly hoarse. Elongated uvula that appears mildly edematous. Left-sided asymmetric tonsillar hypertrophy. Mild protrusion of L tonsillar bed. No significant exudate noted. Posterior pharynx erythema. NECK: Supple. No adenopathy, no masses. RESPIRATORY: Airway patent, respirations nonlabored. Clear to auscultation bilaterally, no rales, rhonchi, wheezing. No stridor. CARDIOVASCULAR: Regular rate and rhythm without murmurs, rubs, or gallops. Radial pulses 2+ and equal bilaterally. MUSCULOSKELETAL: Moves all extremities. No gross deformities. SKIN: Warm, dry, normal color. No rashes. NEURO: A&O X3. Speech clear. Cranial nerves II-XII grossly intact. Steady gait. No ataxic movements. PSYCHIATRIC: Appropriate mood and affect. Normal interaction. Course Vital Signs Vital signs: Vital Signs [place]
[2023-08-20 12:20] VITALS: BP 137/89; PULSE 67; RESP 19; O2SAT 100
[2023-08-20 12:47] LABS: Strep Group A RT-PCR NOT DETECTED (Negative)
[2023-08-20 12:58] LABS: Influenza A QL RT-PCR Negative (Negative); Influenza B QL RT-PCR Negative (Negative); SARS-CoV-2 RNA PCR Positive (Negative)
[2023-08-20] MEDS: CLINDAMYCIN 600 MG/D5W 50 ML 600 MG/50 ML PIGGYBACK 100 MG IVPB (13:05)
[2023-08-20 14:01] VITALS: BP 134/85; PULSE 67; RESP 18; O2SAT 99
[2023-08-21 22:01] LABS: Monoscreen Negative (Negative); Negative Monotest Control Negative (Negative); Positive Monotest Control Positive (Positive)
== END 2023-08-20 14:02 | disposition home or self-care (01) ==
PROVIDERS: Emergency Provider Physician Assistant; PCP Internal Medicine
DX: J36 Peritonsillar abscess (principal); Z20.822 Contact with and (suspected) exposure to COVID-19; E11.9 Type 2 diabetes mellitus without complications; I10 Essential (primary) hypertension; E04.1 Nontoxic single thyroid nodule; J32.0 Chronic maxillary sinusitis; Z86.16 Personal history of COVID-19
CPT/HCPCS: 36415; 70491; 80053; 85025; 86308; 87636; 87651; 96365; 99284; Q9967

== ENCOUNTER 2025-08-23 08:29 | Outpatient (CLI) | payer OTHER, SELFPAY ==
--- NOTE | ~2025-08-23 | XR_ITS ---
EXAMINATION: XR chest 2V, 08/23/2025 8:34 WEAVING MACHINE OPERATOR HISTORY: umbilical hernia COMPARISON: No comparisons available. Technique: 2 views obtained. Findings: The lungs are clear, no effusion. No pneumothorax. Heart is normal size. Mediastinal and hilar contours are within normal limits. Bony thorax no acute abnormality. Impression: No acute cardiopulmonary abnormality. Reviewed, dictated and finalized at location P. ING MACHINE OPERATOR Impression: No acute cardiopulmonary abnormality.
--- NOTE | ~2025-08-23 | CT_ITS ---
EXAMINATION: CT abdomen pelvis wo jackie, 08/23/2025 8:29 MATERIALS PLANNER HISTORY: Umbilical hernia without obstruction or gangrene COMPARISON: No comparisons available. TECHNIQUE: CT scan of the abdomen and pelvis was performed without IV contrast. One or more of the following dose reduction techniques were used: automated exposure control, adjustment of the mA and/or kV according to patient size, use of iterative reconstruction technique. Unless otherwise stated, incidental findings do not require dedicated follow up imaging FINDINGS: CT abdomen: LUNG BASES: The lung bases are clear. The visualized portions of the heart and pericardium are unremarkable. LIVER: Unremarkable, liver contours intact, no lesions. SPLEEN: Within the spleen there are solid-appearing lesions noted the largest measuring 2 x 2 cm.. KIDNEYS: Right Kidney: Unremarkable. No calculi. No hydronephrosis. Left Kidney: Left kidney midpole simple appearing cyst 2 x 2 cm with additional subcentimeter probable renal cysts. ADRENAL GLANDS: Unremarkable. PANCREAS: Unremarkable. GALLBLADDER/BILIARY: Unremarkable. No biliary dilatation. STOMACH AND ESOPHAGUS: Visualized stomach and esophagus within normal limits. BOWEL/MESENTERY: Moderate fecal content, no colitis or diverticulitis. Appendix is normal. Mesentery normal. No thickened or dilated loops of small bowel. ADENOPATHY/RETROPERITONEUM: There are enlarged lymph nodes in the retroperitoneum and the largest 1.2 x 1.3 cm with enlarged lymph nodes also in the inferior left retroperitoneum the largest in this location measuring 1.6 x 1.6 cm. AORTA/VASCULATURE: Normal caliber aorta. FREE FLUID OR FREE AIR: No free fluid.. CT pelvis: SOLID ORGANS/REPRODUCTIVE: The prostate is prominent, correlate with PSA. BLADDER: There is circumferential thickening of the bladder wall consistent with mild probable cystitis. OSSEOUS STRUCTURES: There are enlarged lymph nodes also noted in the pelvis the largest in the right obturator location measuring 4.1 x 2 cm with the largest in the left external iliac space measuring 2.4 x 1.5 cm. OVERLYING SOFT TISSUES: There is a large umbilical hernia containing multiple bowel loops, the defect in the abdominal wall measures 3.5 cm. There are small bilateral fat-containing inguinal hernia noted. IMPRESSION: 1. Large umbilical hernia detailed above 2. Lymphadenopathy concerning for neoplasm. There are splenic lesions incompletely characterized. Contrast-enhanced MRI is suggested. 3. Incidental findings above Reviewed, dictated and finalized at location P. RIALS PLANNER IMPRESSION: 1. Large umbilical hernia detailed above 2. Lymphadenopathy concerning for neoplasm. There are splenic lesions incomplet shirley characterized. Contrast-enhanced MRI is suggested. 3. Incidental findings above
== END 2025-08-23 08:30 | disposition home or self-care (01) ==
PROVIDERS: PCP Internal Medicine; Visit Provider Surgery
DX: K42.9 Umbilical hernia without obstruction or gangrene (principal); R59.1 Generalized enlarged lymph nodes
CPT/HCPCS: 71046; 74176

== ENCOUNTER 2025-10-09 06:50 | Outpatient (CLI) | payer OTHER, SELFPAY ==
[2025-10-09 07:23] LABS: Hematocrit 40.3 % (42.0-52.0); Hemoglobin 13.9 g/dL (14.0-18.0); Immature Granulocyte Percent A 0.4 % (0-0.5); Lymphocytes Absolute Auto 1.27 K/mm3 (0.9-3.2); Mean Corpuscular HGB Conc 34.5 g/dl (32-36); Mean Corpuscular Hemoglobin 29.3 pg (26-34); Mean Corpuscular Volume 84.8 fl (80-100); Nucleated Red Blood Cells Absolute Auto 0.000 K/mm3 (0.0-0.012); Nucleated Red Blood Cells Perc 0.0 % (0.0-0.2); Platelet Count Result 196 k/mm3 (150-375); Red Blood Count 4.75 M/mm3 (4.6-6.20); White Blood Count 4.8 K/mm3 (4.5-10.0)
[2025-10-09 07:42] LABS: Anion Gap 8 mmol/L (4-12); Blood Urea Nitrogen 17 mg/dL (9-20); Calcium 8.9 mg/dL (8.4-10.2); Carbon Dioxide 22 mmol/L (22-30); Chloride 109 mmol/L (98-107); Estimated Glomerular Filt Rate > 60; Glucose 104 mg/dL (65-110); Potassium 3.8 mmol/L (3.4-5.0); Sodium 139 mmol/L (137-145)
== END 2025-10-09 06:51 | disposition home or self-care (01) ==
LOC: ANHSURGERY 06:55
PROVIDERS: PCP Internal Medicine; Visit Provider Surgery
DX: Z01.818 Encounter for other preprocedural examination (principal); K42.9 Umbilical hernia without obstruction or gangrene; R94.31 Abnormal electrocardiogram [ECG] [EKG]; Z79.01 Long term (current) use of anticoagulants
CPT/HCPCS: 36415; 80048; 85025; 86850; 86900; 86901

== ENCOUNTER 2025-10-16 00:41 | Day surgery (SDC) | payer OTHER, SELFPAY ==
[2025-10-08 09:59] VITALS: BMI 47.5
--- NOTE | 2025-10-08 10:08 | PC.NURSE ---
[facility] has started construction of its new state of the art ER which will open Spring 2026. With this, we anticipate parking may be a challenge for some our surgical patients and families. Parking spaces are limited but are available for all Surgical, obstetrics, and ER patients sharing this lot. If you arrive and find you are having a hard time finding a parking space, please note that we understand the challenges, please drive around the hospital and park near Hospital Entrance 1. When you enter this entrance, you can ask a volunteer to direct or take you back to the surgical waiting area to check in. We appreciate everyone?s understanding of these expected challenges while we build for your future. Report to the Outpatient Waiting Room, entrance under the green pavilion located off [address], at time _0800_ on date _[id number]_. Planned Procedure Time: _1000_.? Time changes happen often and if your time is changed the preop area will call you the afternoon before. - You and your visitor will be asked to self-screen and do not enter if you have any COVID symptoms. Please call surgeon if you need to reschedule. - A mask is optional within the hospital at this time. Patients may have clear liquids (water, carbonated beverages, clear teas, apple juice) until 3 hours prior to surgery with a maximum of 20 ounces. - No food from midnight until time of surgery and no smoking, or chewing tobacco (or any form of nicotine). No chewing gum, candy or mints. Take only the following medications with a SIP of water on the morning of surgery: ___Amlodipine____ DO NOT STOP ANY OF YOUR OTHER PRESCRIPTION MEDICATIONS PRIOR TO SURGERY EXCEPT THE FOLLOWING Hold all vitamins and supplements for 3 days per anesthesiologist. Medications to discontinue per physician ____Eliquis stop 2 days prior to surgery as instructed by Dr Handy_ Date to take last [id number]___ Please no make-up, nail monegasque, hairspray, perfume, deodorant, or body powder the day of surgery.? No jewelry (including any body piercings) or valuables the day of surgery, leave them at home.? Please take a shower or bath the night before, or the morning of, surgery with an antibacterial soap.? Wear comfortable, loose fitting clothing.? - Jewelry must be removed prior to entering the operating room.? Rings and piercings that are not removed may be cut off. - The hospital will not accept responsibility for valuables.? - Please leave all valuables, including medications, at home the day of surgery. If you are going home after surgery, a licensed newspaper delivery driver must drive you home.? - NO public transportation without another adult if you receive anesthesia. - We recommend that an adult stay with you for 24 hours following discharge. - We also recommend that you do not drive, make important decision, drink alcoholic beverages, or take any drugs that were not prescribed by your health care provider for at least 24 hours after your discharge time. Follow any additional instructions given to you from your surgeon. Telephone instructions given to __Doug__and asked if any additional questions and then verbalized understanding. Patient advised to call surgeon office or pre surgery nurse liaison [phone] if any additional questions.
--- NOTE | 2025-10-15 21:05 | P.SS_ITS ---
Same Day Admit/Disch: HPI History of Present Illness Chief complaint: umbilical hernia with 5cm defect Narrative: Pierce Smith is a 55 year old male whom I 1st saw in the office in January doubt in . He had an umbilical hernia with a 3 cm defect that was occasionally bothersome. At that time he had lost 70 lb in the last 2 years but still was extremely obese with a BMI of 48.6. Patient was planning on losing additional weight and we decided to hold off on surgery. He returned in July of 2025. He had not lost weight but now the umbilical hernia had gotten larger such that he had an open wound where the umbilical skin was protruding and rubbing on adjacent umbilical skin. The hernia defect also increased in size to about 5 cm. After discussion, patient is taken to surgery for robotic laparoscopic repair of enlarging, symptomatic umbilical hernia with 5 cm defect. He has a history of atrial fibrillation and takes apixaban which is been held for surgery. He also has [id number] diabetes and hypertension. [facility] Past Medical History Medical History Diabetes Hypertension Surgical History Surgical History No significant past surgical history Family History Family History Father , at age 49 Brain aneurysm Mother , had 2 episodes of cancer unknown type to patient Cancer Social History Social History Smoking status: Never smoker Tobacco type: cigarettes Second hand tobacco smoke exposure: No Alcohol intake: current Substance use: never Concerned About Future Housing: Decline to Answer Difficulty Paying Gas/Electric Bills: Decline to Answer Difficulty Paying for Meds: Decline to Answer Currently Unemployed: Decline to Answer Difficulty w/ Childcare or Family Care: Decline to Answer Living arrangements: with family Occupation/Education: occupation Gender identity (if verbalized by the patient): Male Sexual Orientation (if Verbalized by the Patient): Straight or Heterosexual Spiritual care concerns: No Same Day Admit/Disch: Med Pre-admit Medications Home Medications ?Medication ?Instructions ?Recorded ?Confirmed ?Type amlodipine 10 mg tablet 10 mg PO DAILY 07/07/2009/18 History losartan 50 mg tablet 50 mg PO DAILY 07/07/2009/18 History spironolactone 25 mg tablet 25 mg PO DAILY #30 tabs 10/16/25 Rx apixaban 5 mg tablet (Eliquis) 5 mg PO BID 01/28/25 History Held on 10/16/25. Instructions: Resume on 10/19/25. oxycodone-acetaminophen 5 mg-325 1 - 2 tablet PO Q6H P RN pain #20 10/16/25 Rx mg tablet (Percocet) tabs Review of Systems Review of Systems All systems reviewed & are unremarkable except as noted in HPI and below (HPI) Exam Const: General: comfortable, no acute distress, alert and awake HENMT: Head: normocephalic and atraumatic Mouth: Yes Normal oral and palatal mucosa present Eyes: Conjunctivae: conjunctivae normal Pupils: Equal, round and reactive pupils present EOM: EOMs intact bilaterally Neck: Neck: normal visual inspection, no lymphadenopathy and nontender Resp: Effort & Inspection: normal respiratory effort Auscultation: clear to auscultation bilaterally Cardio: Rate: regular rate Rhythm: regular rhythm Heart sounds: no gallops, no murmurs and no rubs GI: Inspection: non-distended, obesity and visible herniation (Umbilical, reducible, large diastasis) GI Palp: Yes Soft to palpation, No Tenderness to palpation present (GI), No Hepatomegaly present, No Splenomegaly present and Yes Hernia present umbilical 3-10 cm Skin: Lesions: no lesions Rashes: no rashes Neuro: General: no focal motor deficits and CN's II-XI intact bilaterally Cranial nerves: Yes Equal, round and reactive pupils present, Yes Bilaterally intact EOM present, Yes facial symmetry and Yes Midline tongue present Speech: normal speech Motor exam (neuro): 5/5 motor strength present throughout and Motor abnormalities not present Extrem: General: no clubbing, cyanosis or edema and edema Psych: Affect: normal affect Thought process: Normal thought process present Insight: Good insight present (Psych) DS: Summary Time Spent with Patient Time attestation: Total time spent providing and/or coordinating discharge services: DS: Admitting Diagnosis Discharge Date 10/16/2025 Admitting Diagnosis * Enlarging, symptomatic, umbilical hernia with 5 cm defect-plan to proceed with robotic laparoscopic repair with mesh. The procedure has been discussed with the patient in detail. The risks, benefits, alternatives have been discussed. The usual length of the surgery, length of recovery, and time off work have been discussed. All questions were answered. He understands and wishes to proceed. * History atrial fibrillation * Chronic anticoagulant therapy * Hypertension * Morbid obesity * Non insulin-dependent diabetes DS: Discharge Diagnosis Discharge Diagnosis (1) Umbilical hernia: Qualifiers: Obstruction and gangrene presence: without obstruction or gangrene Qualified Code(s): K42.9 - Umbilical hernia without obstruction or gangrene Code(s): K42.9 - Umbilical hernia without obstruction or gangrene Status: Chronic Assessment and Plan: Robotic laparoscopic repair with mesh performed by Dr. Handy 10/16/2025. Discharge Plan Discharge Patient Disposition: Home Discharge Instructions: 1. Gauze dressing is over the umbilical skin to try to keep it inverted. You can take off this dressing and shower on Tuesday. Leave it on until then unless it becomes soiled. Place gauze in the umbilical defect and apply tape daily and as needed thereafter. This should help minimize the risk of seroma or fluid distension of the umbilical skin. There is no incision under the gauze dressing placed in surgery. 2. Call office for: -Wound increasingly painful or bleeding -Vomiting -Fever of greater than 101 degrees 3. A fluid collection may develop in the empty space under the umbilical skin. This may distend the umbilical skin but is not a recurrent hernia. 4. If no bowel movement for three days, take 1 oz. (30 ml) Milk of Magnesia, if no results, take Fleets enema. 5. No heavy lifting > 15-20 pounds for 2 weeks. 6. No driving for 3 days or while taking narcotic pain medications. 7. Up walking 10-30 minutes three times per day. 8. Resume previous home medications. 9. Follow-up 10-14 days in office for wound check or as previously scheduled. 10. Oral pain medications prescription to be sent home with patient. 11. NUTRITION: Start out by drinking fluids and increase your diet as tolerated. If you experience nausea, try dry toast, crackers, and 7-UP. If nausea or vomiting persists, contact your surgeon?s office. Remove the Scopolamine patch that was placed behind your ear in 72 hours or less. Wash your hands after touching. Patient Language: [place] Stand Alone Forms: General Discharge Instructions, Work/School Release IP Follow-up/Referrals: Juan Handy MD [Physician, General Surgery] - 2 Weeks Discharge Medications: New oxycodone-acetaminophen [Percocet] 5-325 mg tablet 1 - 2 tablet PO Q6H PRN (Reason: pain) Qty: 20 0RF Continued losartan 50 mg tablet 50 mg PO DAILY amlodipine 10 mg tablet 10 mg PO DAILY spironolactone 25 mg tablet 25 mg PO DAILY Qty: 30 0RF Held Eliquis 5 mg tablet 5 mg PO BID Hold Instructions: Resume on 10/19/25.
[2025-10-16] VITALS (9 sets, daily range): BP systolic 106–143; BP diastolic 65–79; PULSE 46–72; RESP 12–25; TEMP 36.5–36.8; O2SAT 92–100
--- OUTSIDE RECORDS SUMMARY | 2025-10-16 00:45 | XMS_ITS | Clinical Summary ---
Author Organization [facility] Care Team Providers Care Ledger Poster Name Role Phone Unavailable Primary Care Provider Unavailabl e Social History Tobacco Use Types Packs/Day Years Used Date Smoking Tobacco: Never Assessed Sex and Gender Information Value Date Recorded Sex Assigned at Not on file Legal Sex Male 2:39 PM [employer] Gender Identity Not on file Sexual Orientation Not on file Plan of Treatment Health Maintenance Due Date Last Done Comments Hepatitis C Virus (HCV) Screening 1968 TdaP Immunization 1968 Hepatitis B Immunization (1 of 3 - 19+ 3-dose series) 1987 Cologuard 2013 Colonoscopy 2013 Colorectal Cancer Screening 2013 Immunochemical Fecal Occult Blood 2013 Pneumococcal Immunization (5 0+ years) (1 of 1 - PCV) 2018 Zoster Immunization (1 of 2) 2018 Influenza Immunization (#1) 2025 07/18/2014 SARS-COV-2 Immunization ( - season) 2025 Respiratory Syncytial Virus (RSV) Immunization (Adult) (1 - 1-dose 75+ series) 2043 Human Papillomavirus (HPV) Immunization Aged Out No longer eligible b ased on patient's age to complete this topic Meningococcal Immunization (ACWY) Aged Out No longer eligible based on patient's age to complete this topic Rotavirus Immunization Aged Out No lo nger eligible based on patient's age to complete this topic
--- OUTSIDE RECORDS SUMMARY | 2025-10-16 00:45 | XMS_ITS | Clinical Summary ---
Author Organization [facility] Address [address] [place] [address] Care Team Providers Care Granite Worker Name Role Phone Hiral Corral MD Primary Care Provider [phone] Allergies Active Allergy Reactions Criticality Noted Date Comments Penicillin Rash Medium 08/04/2023 Medications metoprolol tartrate (LOPRESSOR) 25 mg immediate release tabletIndications :Paroxysmal atrial fibrillation (HCC) TAKE 1 TABLET (25 MG TOTAL) BY MOUTH DAILY NEEDED (PALPITATIO NS) 100 tablet 1 4 Active amLODIPine (NORVASC) 10 mg tablet TAKE 1 TABLET BY MOUTH EVERY DAY 90 tablet 2 5 Active losartan (COZAAR) 50 mg tablet TAKE 1 TABLET BY MOUTH EVERY DAY 90 tablet 2 5 Active spironolactone (ALDACTONE) 25 mg tablet TAKE 1 TABLET (25 MG TOTAL) BY MOUTH DAILY. 90 tablet 2 5 Active Eliquis 5 mg tablet TAKE 1 TABLET BY MOUTH TWICE A DAY 180 tablet 5 Active furosemide (LASIX) 40 mg tablet TAKE 1 TABLET BY MOUTH EVERY DAY 90 tablet 2 5 09/18/20 25 Discontinu ed(Therapy completed) Active Problems Problem Noted Date Diagnosed Date Umbilical hernia without obstruction and without gangrene 01/16/2025 Assessment & Plan (09/26/2025 4:42 PM SECURITY GUARD DISPATCHER): Patient is scheduled for surgical repair. Assessment & Plan (09/18/2025 9:51 AM SECURITY GUARD DISPATCHER): Patient is planned for upcoming umbilical hernia repair with Dr. Handy. No acute exam findings. Echo this year with normal LV function and no wall motion abnormality. EKG today with no acute ST/T wave changes. Would be an acceptable risk for planned surgical procedure. Assessment & Plan (01/16/2025 9:17 AM CDT): Asymptomatic umbilical hernia. Will make referral to see a surgeon for further evaluation Chronic diastolic heart failure 12/10/2024 Assessment & Plan (09/26/2025 7:47 AM SECURITY GUARD DISPATCHER): Continue diuretics and low-salt diet Assessment & Plan (09/18/2025 9:51 AM SECURITY GUARD DISPATCHER): With echo in December that demonstrated EF of 64%, with normal diastolic function at that time. No signs of volume overload. Will continue with losartan 50 mg daily and aldactone 25 mg daily. Will need monitoring post-operatively with upcoming umbilical surgery Assessment & Plan (01/16/2025 7:12 AM CDT): Continue diuretics and low-salt diet Acute bronchitis 09/20/2024 Assessment & Plan (09/20/2024 3:16 PM SECURITY GUARD DISPATCHER): Discussed viral etiology. Discussed length of respective cough. Tessalon Perles 200 mg t.i.d., albuterol p.r.n., Medrol Dosepak sent to patient's pharmacy. He is advised to follow up if symptoms persist. I advised him that a cough from bronchitis can persist For many weeks. He will follow up if symptoms change. Lymphedema 08/29/2024 SOB (shortness of breath) 05/08/2024 Assessment & Plan (05/22/2024 10:20 AM CDT): Patient lost about 14 lb in the last 2 weeks. He feels much better. No shortness a breath. Continue Lasix daily. Assessment & Plan (05/08/2024 9:29 AM CDT): Patient complains of shortness of breath of 1 day duration. He has not in respiratory distress. Exam was remarkable for trace bilateral leg edema. He gained few lb. It is possible that he has fluid retention. Will obtain chest x-ray and BNP. Will start him on Lasix 40 mg daily. Will evaluate him again in 2 weeks. Patient to go to the ER if he has worsened symptoms. Other chest pain 07/21/2023 KRISTIAN treated with BiPAP 05/05/2022 Assessment & Plan (09/26/2025 7:48 AM SECURITY GUARD DISPATCHER): Patient uses CPAP machine on regular basis Assessment & Plan (09/18/2025 9:51 AM SECURITY GUARD DISPATCHER): Bipap for all sleep. Patient continues to see benefit. Assessment & Plan (01/16/2025 7:13 AM CDT): Patient uses CPAP machine on regular basis Assessment & Plan (07/18/2024 7:24 AM CDT): Patient uses CPAP machine on regular basis Assessment & Plan (01/17/2024 7:49 AM CDT): Patient uses CPAP machine on regular basis Assessment & Plan (07/18/2023 7:47 AM CDT): Patient uses CPAP machine on regular basis Assessment & Plan (11/12/2022 9:10 AM SECURITY GUARD DISPATCHER): Patient uses CPAP machine on regular basis Assessment & Plan (05/14/2022 9:34 AM CDT): Patient was diagnosed with sleep apnea and he will have CPAP machine Aortic root dilatation 02/12/2022 Assessment & Plan (09/18/2025 9:24 AM SECURITY GUARD DISPATCHER): Had follow up echo in December of this year and demonstrated mild dilation at 3.6cm. Good blood pressure control encouraged. Psychophysiological insomnia 02/03/2022 Palpitation 02/03/2022 Hypersomnia 02/03/2022 Nonsmoker 02/03/2022 Leg swelling 02/03/2022 Snoring 01/08/2022 Assessment & Plan (01/08/2022 9:05 AM CDT): Referral for sleep study Paroxysmal A-fib 01/08/2022 Assessment & Plan (09/26/2025 7:48 AM SECURITY GUARD DISPATCHER): Patient is in normal sinus rhythm. He is on Eliquis. Followed by market development trainer Assessment & Plan (09/18/2025 9:51 AM SECURITY GUARD DISPATCHER): Patient remains in NSR at visit today. No reports of any recent palpitations. Has not had to use his prn Metoprolol since last visit. Will remain on Eliquis for AC. Assessment & Plan (01/16/2025 7:14 AM CDT): Patient is in normal sinus rhythm. He is on Eliquis. Followed by market development trainer Assessment & Plan (07/18/2024 7:25 AM CDT): Patient is in normal sinus rhythm. He is on Eliquis. Followed by market development trainer Assessment & Plan (05/22/2024 10:20 AM CDT): Patient is in normal sinus rhythm. He is on Eliquis. Rate is controlled. Patient likes to see a different market development trainer. Will make him a referral Assessment & Plan (05/08/2024 9:28 AM CDT): Patient is in normal sinus rhythm. He is on Eliquis. Rate is controlled. Assessment & Plan (01/17/2024 7:49 AM CDT): Patient is in normal sinus rhythm and he is maintained on Eliquis and followed by the market development trainer Assessment & Plan (07/18/2023 7:47 AM CDT): Patient is in normal sinus rhythm and he is maintained on Eliquis and followed by the market development trainer Assessment & Plan (11/12/2022 9:10 AM SECURITY GUARD DISPATCHER): Patient is in normal sinus rhythm and he is maintained on Eliquis and followed by the market development trainer Assessment & Plan (05/14/2022 8:03 AM CDT): Patient is in normal sinus rhythm. He is on Eliquis. Followed by the Cardiology Assessment & Plan (01/08/2022 9:06 AM CDT): Patient with episode of atrial fibrillation. He converted to sinus rhythm in few hours. Echocardiogram was unremarkable. Patient was stable during his hospitalization. He was started on Eliquis 5 mg b.i.d.. Side effects were explained. Continue current medications. Follow-up with market development trainer. His AFib could be secondary to excessive consumption of caffeine. Patient was advised to avoid caffeine. His potassium was low as well. On discharge from the hospital his potassium was normal. He has blood test to check his potassium before his next visit with market development trainer. Colon cancer screening 06/29/2019 Assessment & Plan (07/18/2024 7:24 AM CDT): Cologuard test in November 2022 was negative Assessment & Plan (01/17/2024 7:49 AM CDT): Cologuard test in November 2022 was negative Assessment & Plan (11/12/2022 9:10 AM SECURITY GUARD DISPATCHER): We discussed colon cancer screening again and he agrees to do Cologuard. He understands the benefits and the risks Assessment & Plan (04/10/2021 8:44 AM CDT): Discussed options for colon cancer screening again including Cologuard or colonoscopy and the patient declined both. He understands the risks including colon cancer. Assessment & Plan (09/29/2020 8:18 AM SECURITY GUARD DISPATCHER): Patient declined again colonoscopy or other modality for colon cancer screening at this time. He understands the risks including cancer. We will visit the subject with him again with his next visit. Assessment & Plan (02/11/2020 9:26 AM CDT): We discussed colon cancer screening again with the patient and he wants to wait. He understands the risks including colon cancer Assessment & Plan (06/29/2019 10:07 AM CDT): Discussed colonoscopy or colo guard and the patient wants to wait. He understands the risks. Type 2 diabetes mellitus wit hout complication, without long-term current use of insulin 10/06/2018 Overview (01/17/2024): Hemoglobin A1c is stable without metformin. Hemoglobin A1c is 6. Patient said that he had recent eye exam. Continue diet and exercise and weight loss Assessment & Plan (09/26/2025 7:48 AM SECURITY GUARD DISPATCHER): Controlled without medications. Continue diet and exercise. The patient declined GLP 1 agonist to help with diabetes and weight loss Assessment & Plan (01/16/2025 9:17 AM CDT): Controlled without medications. Continue diet and exercise. The patient declined GLP 1 agonist to help with diabetes and weight loss Assessment & Plan (07/18/2024 7:25 AM CDT): Controlled without medications. Continue diet and exercise Assessment & Plan (01/17/2024 7:49 AM CDT): Controlled without medications. Continue diet and exercise Assessment & Plan (07/18/2023 7:48 AM CDT): Controlled without medications. Continue diet and exercise Assessment & Plan (05/14/2022 8:03 AM CDT): Continue current medications, discussed low carbohydrate diet, advised to exercise on regular basis, advised to have annual eye exam. We will continue to monitor. Assessment & Plan (01/08/2022 9:04 AM CDT): Hemoglobin A1c was 5.4. Glipizide was stopped. Continue metformin. Advised to have annual eye exam. Assessment & Plan (04/10/2021 8:44 AM CDT): Continue current medications, discussed low carbohydrate diet, advised to exercise on regular basis, advised to have annual eye exam. We will continue to monitor. Assessment & Plan (09/29/2020 8:19 AM SECURITY GUARD DISPATCHER): Continue current medications, discussed low carbohydrate diet, advised to exercise on regular basis, advised to have annual eye exam. We will continue to monitor. Assessment & Plan (02/11/2020 9:25 AM CDT): Continue current medications, discussed low carbohydrate diet, advised to exercise on regular basis, advised to have annual eye exam. We will continue to monitor. Assessment & Plan (06/29/2019 10:07 AM CDT): Continue current medications, discussed low carbohydrate diet, advised to exercise on regular basis, advised to have annual eye exam. We will continue to monitor. BMI 45.0-49.9, adult 04/11/2017 Assessment & Plan (09/18/2025 9:51 AM SECURITY GUARD DISPATCHER): Weight loss encouraged. We discussed Wegovy for weight loss in setting of obesity and KRISTIAN. He wishes to continue with lifestyle modification at this time. Assessment & Plan (01/16/2025 9:17 AM CDT): BMI Follow-up includes: nutrition counseling. The patient was advised to exercise 5 times a week for 30 minutes each time. We discussed low calorie diet. Discussed lifestyle changes. Assessment & Plan (07/18/2024 8:49 AM CDT): BMI Follow-up includes: nutrition counseling. The patient was advised to exercise 5 times a week for 30 minutes each time. We discussed low calorie diet. Discussed lifestyle changes. Assessment & Plan (07/18/2023 9:41 AM CDT): BMI Follow-up includes: nutrition counseling. The patient was advised to exercise 5 times a week for 30 minutes each time. We discussed low calorie diet. Discussed lifestyle changes. Assessment & Plan (05/14/2022 8:03 AM CDT): BMI Follow-up includes: nutrition counseling. The patient was advised to exercise 5 times a week for 30 minutes each time. We discussed low calorie diet. Discussed lifestyle changes. Assessment & Plan (01/08/2022 9:04 AM CDT): BMI Follow-up includes: nutrition counseling. The patient was advised to exercise 5 times a week for 30 minutes each time. We discussed low calorie diet. Discussed lifestyle changes. Assessment & Plan (04/10/2021 8:43 AM CDT): BMI Follow-up includes: nutrition counseling. The patient was advised to exercise 5 times a week for 30 minutes each time. We discussed low calorie diet. Discussed lifestyle changes. Assessment & Plan (09/29/2020 8:18 AM SECURITY GUARD DISPATCHER): BMI Follow-up includes: nutrition counseling. The patient was advised to exercise 5 times a week for 30 minutes each time. We discussed low calorie diet. Discussed lifestyle changes. Assessment & Plan (02/11/2020 9:25 AM CDT): BMI Follow-up includes: nutrition counseling. The patient was advised to exercise 5 times a week for 30 minutes each time. We discussed low calorie diet. Discussed lifestyle changes. Assessment & Plan (06/29/2019 10:07 AM CDT): BMI Follow-up includes: nutrition counseling. The patient was advised to exercise 5 times a week for 30 minutes each time. We discussed low calorie diet. Discussed lifestyle changes. Essential (primary) hypertension 08/16/2016 Assessment & Plan (09/26/2025 4:42 PM SECURITY GUARD DISPATCHER): Continue current medications. Discussed low-salt diet. Discussed exercise on regular basis. Will continue to monitor Assessment & Plan (09/18/2025 9:51 AM SECURITY GUARD DISPATCHER): Blood pressure is well controlled. Continue losartan 50 mg daily, aldactone 25 mg daily and norvasc 10 mg daily. Assessment & Plan (01/16/2025 7:13 AM CDT): Continue current medications. Discussed low-salt diet. Discussed exercise on regular basis. Will continue to monitor Assessment & Plan (07/18/2024 7:24 AM CDT): Continue current medications. Discussed low-salt diet. Discussed exercise on regular basis. Will continue to monitor Assessment & Plan (01/17/2024 7:49 AM CDT): Continue current medications. Discussed low-salt diet. Discussed exercise on regular basis. Will continue to monitor Assessment & Plan (07/18/2023 7:47 AM CDT): Continue current medications. Discussed low-salt diet. Discussed exercise on regular basis. Will continue to monitor Assessment & Plan (11/12/2022 9:09 AM SECURITY GUARD DISPATCHER): Continue current medications. Discussed low-salt diet. Discussed exercise on regular basis. Will continue to monitor Assessment & Plan (05/14/2022 8:03 AM CDT): Continue current medications. Discussed low-salt diet. Discussed exercise on regular basis. Will continue to monitor Assessment & Plan (01/08/2022 9:04 AM CDT): Continue current medications. Discussed low-salt diet. Discussed exercise on regular basis. Will continue to monitor Assessment & Plan (04/10/2021 8:43 AM CDT): Continue current medications. Discussed low-salt diet. Discussed exercise on regular basis. Will continue to monitor Assessment & Plan (09/29/2020 8:18 AM SECURITY GUARD DISPATCHER): Continue current medications. Discussed low-salt diet. Discussed exercise on regular basis. Will continue to monitor Assessment & Plan (02/11/2020 9:25 AM CDT): Continue current medications. Discussed low-salt diet. Discussed exercise on regular basis. Will continue to monitor Assessment & Plan (06/29/2019 10:06 AM CDT): Continue current medications. Discussed low-salt diet. Discussed exercise on regular basis. Will continue to monitor Encounters Date Type Department Care Team Description 09/26/2025 3:45 PM SECURITY GUARD DISPATCHER Office Visit [facility] Internal Medicine [address] [place] [address] Hiral Corral MD Type 2 diabetes mellitus without complication, without long-term current use of insulin (HCC) (Primary Dx); Paroxysmal A-fib (HCC); KRISTIAN treated with BiPAP; Chronic diastolic heart failure (HCC); Prostate cancer screening; Colon cancer screening; Essential (primary) hypertension; Morbid obesity with body mass index of 45.0-49.9 in adult (HCC) 09/18/2025 9:30 AM SECURITY GUARD DISPATCHER Office Visit [facility] Cardiology [address] [address] [address] [place] [address] Donna Lucas NP Paroxysmal A-fib (HCC) (Primary Dx); Essential (primary) hypertension; Chronic diastolic heart failure (HCC); Aortic root dilatation; KRISTIAN treated with BiPAP; Umbilical hernia without obstruction and without gangrene; BMI 45.0-49.9, adult (HCC) 09/04/2025 8:15 AM SECURITY GUARD DISPATCHER Office Visit [facility] Pulmonary [place] [address] [place] [address] Kate Hubbard MD KRISTIAN treated with BiPAP (Primary Dx); Lymphedema; Paroxysmal A-fib (HCC); Psychophysiological insomnia; Nonsmoker; BMI 45.0-49.9, adult (HCC) from Last 3 Months Immunizations Immunization Administration Dates Next Due Influenza, Trivalent, IM (MDV) 07/18/2014 Influenza, Unspecified 09/26/2025(Deferr ed: Patient decision),07/21/2024(Deferred: Patient decision),07/18/2024(Deferred: Patient Refused),05/08/2024(Deferred: Patient Refused),07/18/2023(Deferred: Patient Refused) Moderna SARS-CoV-2 Monovalen t Vaccination (12+ YRS) 12/05/2020,11/07/2020 Tdap 05/14/2022 Medical History Medical History Date Comments Obesity Hypertension Diabetes mellitus Palpitations Hypokalemia Family History Medical History Relation Name Comments Aneurysm Father Cancer Mother Mom Relation Name Status Comments Father (Age 49) Mother Mom Social History Tobacco Use Types Packs/Day Years Used Date Smoking Tobacco: Never Cigarettes Passive Smoke Exposure: Never Smokeless Tobacco: Never Tobacco Cessation:Counseling Given: Not Answered Alcohol Use Standard Drinks/Week Comments Not Currently 0 (1 standard drink = 0.6 oz pur e alcohol) PHQ-2 Answer Date Recorded PHQ-2 Total Score (If total score is 3 or more points, staff should administer the PHQ-9) 0 09/26/2025 AUDIT-C Answer Date Recorded Q1: How often do you have a drink containing alcohol? Never 09/26/2025 Q2: How many drinks containi ng alcohol do you have on a typical day when you are drinking? Patient does not drink Q3: How often do you have si x or more drinks on one occasion? Never 09/26/2025 Sex and Gender Information Value Date Recorded Sex Assigned at Not on file Legal Sex Male 2:18 AM SECURITY GUARD DISPATCHER Gender Identity Not on file Sexual Orientation Not on file Last Filed Vital Signs Vital Sign Reading Time Taken Comments Blood Pressure 126/80 09/26/2025 3:38 PM SECURITY GUARD DISPATCHER Pulse 74 09/26/2025 3:38 PM SECURITY GUARD DISPATCHER Temperature 36.5 C (97.7 F) 09/26/2025 3:38 PM SECURITY GUARD DISPATCHER Respiratory Rate 18 09/26/2025 3:38 PM SECURITY GUARD DISPATCHER Oxygen Saturation 98% 09/26/2025 3:38 PM SECURITY GUARD DISPATCHER Inhaled Oxygen Concentration - - Weight 155.4 kg (342 lb 9.6 oz) 09/26/2025 3:38 PM SECURITY GUARD DISPATCHER Height 180.3 cm (5' 11) 09/26/2025 3:38 PM SECURITY GUARD DISPATCHER Body Mass Index 47.78 09/26/2025 3:38 PM SECURITY GUARD DISPATCHER Plan of Treatment Health Maintenance Due Date Last Done Comments Hepatitis B Screening 1988 Regular Well Visit/Exam 18-64 1988 Covid-19 Vaccine (2024-2 6 season) 2025 12/05/2020, 11/07/2020 Foot Exam 07/18/2025 07/18/2024, 11/2022, 05/14/2022, Additional history exists Dilated Eye Exam 10/05/2025 10/05/2024, 07/2022, 06/29/2018 Colon Cancer Screening-DNA Stool 11/29/2025 11/29/19 Hemoglobin A1C 03/19/2026 09/18/2025, 12/16, 07/11/2024, Additional history exists Albumin Creatinine Ratio, Urine 09/18/2026 09/18/2025, 07/11/2024, 07/14/2023, Additional history exists Lipid Panel 09/18/2026 09/18/2025, 12/16, 12/10/2024, Additional history exists eGFR 09/18/2026 09/18/2025, 12/16, 07/11/2024, Additional history exists Depression Screening 09/26/2026 09/26/2025, 01/16/2025, 07/18/2024, Additional history exists Prostate Cancer Screening-PSA 01/09/2027, 01/11/2024, 07/14/2023, Additional history exists DTaP/Tdap/Td Vaccine (2 - Td or Tdap) 05/14/2032 05/14/2022 Influenza Vaccine Discontinued 07/18/2014 Colon Cancer Screening-FIT Discontinued 11/29/2022 Hepatitis C Screening Completed 07/11/2024 Pneumococcal vaccine <65 Discontinued Zoster Vaccine Discontinued Procedures Procedure Name Priority Date/Time Associated Diagnosis Comments ELECTROCARDIOGRAM REPORT Routine 025 1:56 PM SECURITY GUARD DISPATCHER Paroxysmal A-fib (HCC) ALBUMIN CREATININE RATIO, URINE Routine 09/18/2025 8:31 AM SECURITY GUARD DISPATCHER Type 2 diabetes mellitus without complication, without long-term current use of insulin (HCC) HEMOGLOBIN A1C Routine 09/18/2025 8:31 AM SECURITY GUARD DISPATCHER Type 2 diabetes mellitus without complication, without long-term current use of insulin (HCC) LIPID PANEL Routine 09/18/2025 8:31 AM SECURITY GUARD DISPATCHER Type 2 diabetes mellitus without complication, without long-term current use of insulin (HCC) COMPREHENSIVE METABOLIC PANEL Routine 09/18/2025 8:31 AM SECURITY GUARD DISPATCHER Type 2 diabetes mellitus without complication, without long-term current use of insulin (HCC) PSA SCREEN Routine 01/09/2025 7:39 AM CDT Prostate cancer screening HM DIABETES EYE EXAM Routine 10/05/2024 3:25 PM SECURITY GUARD DISPATCHER HEPATITIS C ANTIBODY Routine 07/11/2024 7:28 AM CDT Encounter for hepatitis C screening test for low risk patient STOOL DNA COLOGUARD Routine 11/29/2022 6:15 AM SECURITY GUARD DISPATCHER Colon cancer screening DIABETIC FOOT EXAM Routine 04/10/2021 from Last 3 Months or Most Recently Relevant to Health Maintenance Results * Electrocardiogram Report (09/18/2025 1:56 PM SECURITY GUARD DISPATCHER) Donna Lucas V/[employer] SIGNAL OFFICER ECG ORDERABLES Fi nal Result * Albumin Creatinine Ratio, Urine (09/18/2025 8:31 AM SECURITY GUARD DISPATCHER) Creatinine, ur 80 20 - 320 mg/dL [facility] Microalbumin, ur 0.2 See Note: mg/dL [facility] Comment: Reference Range: Reference Range Not established Microalbumin/creat ratio 3 <30 mg/g creat [facility] Comment: The ADA defines abnormalities in albumin excretion as follows: Albuminuria Category Result (mg/g creatinine) Normal to Mildly increased <30 Moderately increased 30-299 Severely increased > OR = 300 The ADA recommends that at least two of three specimens collected within a 3-6 month period be abnormal before considering a patient to be within a diagnostic category. Urine 09/18/2025 8:31 AM SECURITY GUARD DISPATCHER 09/18/2025 8:31 AM SECURITY GUARD DISPATCHER Narrative [facility] - 09/19/2025 3:23 AM SECURITY GUARD DISPATCHER FASTING:YES FASTING: YES Hiral Corral MD LAB URINE ORDERABLES Final Result Performing Organization Address City/[facility]/ZIP Co de Phone Number [facility] [address] [address] * (ABNORMAL) Hemoglobin A1c (09/18/2025 8:31 AM SECURITY GUARD DISPATCHER) Hgb A1C 5.8(H) <5.7 % of total Hgb [facility] [employer] Comment: For someone without known diabetes, a hemoglobin A1c value between 5.7% and 6.4% is consistent with prediabetes and should be confirmed with a follow-up test. For someone with known diabetes, a value <7% indicates that their diabetes is well controlled. A1c targets should be individualized based on duration of diabetes, age, comorbid conditions, and other considerations. This assay result is consistent with an increased risk of diabetes. Currently, no consensus exists regarding use of hemoglobin A1c for diagnosis of diabetes for children. Blood 09/18/2025 8:31 AM SECURITY GUARD DISPATCHER 09/18/2025 8:31 AM SECURITY GUARD DISPATCHER Narrative [facility] - 09/19/2025 3:23 AM SECURITY GUARD DISPATCHER FASTING:YES FASTING: YES Hiral Corral MD LAB BLOOD ORDERABLES Final Result Performing Organization Address [facility] Co de Phone Number [employer] [address] [place] [address] * Lipid panel (09/18/2025 8:31 AM SECURITY GUARD DISPATCHER) Cholesterol 144 <200 mg/dL [employer] HDL 46 > OR = 40 mg/dL [facility] [employer] [facility] Triglycerides 47 <150 mg/dL [facility] [employer] LDL 85 mg/dL (calc) [facility] [employer] Comment: Reference range: <100 Desirable range <100 mg/dL for primary prevention; <70 mg/dL for patients with CHD or diabetic patients with > or = 2 CHD risk factors. LDL-C is now calculated using the Erma calculation, which is a validated novel method providing better accuracy than the Friedewald equation in the estimation of LDL-C. Grayson SARMIENTO et al. PAULA. 2013;310(19): 6741-4996 (http://education.BioScrip/faq/TUM524) Chol/HDL ratio 3.1 <5.0 (calc) Viky [employer]Richar Mast Non-HDL, (LDL+VLDL) 98 <130 mg/dL (calc) [facility] Comment: For patients with diabetes plus 1 major ASCVD risk factor, treating to a non-HDL-C goal of <100 mg/dL (LDL-C of <70 mg/dL) is considered a therapeutic option. Blood 09/18/2025 8:31 AM SECURITY GUARD DISPATCHER 09/18/2025 8:31 AM SECURITY GUARD DISPATCHER Narrative [facility] - 09/19/2025 3:23 AM SECURITY GUARD DISPATCHER FASTING:YES FASTING: YES Hiral Corral MD LAB BLOOD ORDERABLES Final Result VIKY [facility] [address] [place] [address] * (ABNORMAL) Comprehensive metabolic panel (09/18/2025 8:31 AM SECURITY GUARD DISPATCHER) Pathologist [facility] Glucose 100(H) 65 - 99 mg/dL [facility] [employer] [facility] Comment: Fasting reference interval For someone without known diabetes, a glucose value between 100 and 125 mg/dL is consistent with prediabetes and should be confirmed with a follow-up test. BUN 16 7 - 25 mg/dL [facility] [employer] Finance[facility] александр Mast Creatinine 0.84 0.70 - 1.30 mg/dL [facility] [employer] eGFR 102 > OR = 60 mL/min/1.7 3m2 [facility] [employer] BUN/creat ratio SEE NOTE: 6 - 22 (calc) Vik[employer]Richar Mast Comment: Not Reported: BUN and Creatinine are within reference range. Sodium 140 135 - 146 mmol/L [facility] александр Mast Potassium, pl 4.0 3.5 - 5.3 mmol/L [facility] александр Mast Chloride 107 98 - 110 mmol/L [facility] александр Mast CO2 28 20 - 32 mmol/L [employer] александр Mast Calcium 8.6 8.6 - 10.3 mg/dL [facility] [employer] Protein, sr 6.3 6.1 - 8.1 g/dL [employer] александр Mast Albumin 4.0 3.6 - 5.1 g/dL [facility] александр Mast GLOBULIN 2.3 1.9 - 3.7 g/dL (calc) [facility] а[facility]ександр Mast Alb/glob ratio 1.7 1.0 - 2.5 (calc) [facility]екс[facility]р Mast Bilirubin, total 0.6 0.2 - 1.2 mg/dL [facility] а[facility]ександр Mast Alk phos 61 35 - 144 U/L [facility] M[facility] AST 14 10 - 35 U/L [facility]екс[facility] Mast ALT (SGPT) 17 9 - 46 U/L [facility]ександр Mast Blood 09/18/2025 8:31 AM SECURITY GUARD DISPATCHER 09/18/2025 8:31 AM SECURITY GUARD DISPATCHER Narrative [facility] - 09/19/2025 3:23 AM SECURITY GUARD DISPATCHER FASTING:YES FASTING: YES Hiral Corral MD LAB BLOOD ORDERABLES Final Result Performing Organization Address City/[facility] Co de Phone Number [facility] [address] [place] [address] * PSA screen (01/09/2025 7:39 AM CDT) PSA 3.74 < OR = 4.00 ng/mL [facility] Comment: The total PSA value from this assay system is standardized against the WHO standard. The test result will be approximately 20% lower when compared to the equimolar-standardized total PSA (Koffi Amity). Comparison of serial PSA results should be interpreted with this fact in mind. This test was performed using the Siemens chemiluminescent method. Values obtained from different assay methods cannot be used interchangeably. PSA levels, regardless of value, should not be interpreted as absolute evidence of the presence or absence of disease. Blood 01/09/2025 7:39 AM CDT 01/09/2025 7:39 AM CDT Narrative [facility] - 01/10/2025 1:32 AM CDT FASTING:YES FASTING: YES Hiral Corral MD LAB BLOOD ORDERABLES Final Result Performing Organization Address City/[facility]/ZIP Co de Phone Number [facility] [address] [place] [address] * DIABETES EYE EXAM (10/05/2024 3:25 PM SECURITY GUARD DISPATCHER) [facility] SCRIBED DIABETIC DILATED EYE EXAM Normal Historical Provider HEALTH MAINTENANCE Final Result * Hepatitis C antibody Blood (07/11/2024 7:28 AM CDT) [facility] Hep C Ab NON-REACTI VE NON-REACT [facility] Comment: HCV antibody was non-reactive. There is no laboratory evidence of HCV infection. In most cases, no further action is required. However, if recent HCV exposure is suspected, a test for HCV RNA (test code 69929) is suggested. For additional information please refer to http://education.Location/faq/LJG53d8 (This link is being provided for informational/ educational purposes only.) Blood 07/11/2024 7:28 AM CDT 07/11/2024 7:29 AM CDT Narrative [facility] - 07/12/2024 8:34 AM CDT FASTING:YES FASTING: YES Hiral Corral MD LAB MICROBIOLOGY - GENERAL ORDERABLES Final Result [facility] [address] [place] [address] * Stool DNA - Cologuard (11/29/2022 6:15 AM SECURITY GUARD DISPATCHER) [facility] Stool DNA - Cologuard Negative Negative [employer] (CLIA #:[id number]) Comment: NEGATIVE TEST RESULT. A negative Cologuard result indicates a low likelihood that a colorectal cancer (CRC) or advanced adenoma (adenomatous polyps with more advanced pre-malignant features) is present. The chance that a person with a negative Cologuard test has a colorectal cancer is less than 1 in 1500 (negative predictive value >99.9%) or has an advanced adenoma is less than 5.3% (negative predictive value 94.7%). These data are based on a prospective cross-sectional study of 10,000 individuals at average risk for colorectal cancer who were screened with both Cologuard and colonoscopy. (Kassy Montes De Oca al, N Engl J Med 2014;370(74):6901-5268) The normal value (reference range) for this assay is negative. COLOGUARD RE-SCREENING RECOMMENDATION: Periodic colorectal cancer screening is an important part of preventive healthcare for asymptomatic individuals at average risk for colorectal cancer. Following a negative Cologuard result, the [place] Cancer Society and U.S. Multi-Society Task Force screening guidelines recommend a Cologuard re-screening interval of 3 years. References: [place] [employer] Guideline for Colorectal Cancer Screening: https://www.cancer.org/cancer/gupeh-obnfjq-ywprnu/kudawpuag-hclwqsyuz-fvbstew/ac s-rec ommendations.html.; Daniel DK, Gabby HOPE, Carrol SolisK, Colorectal Cancer Screening: Recommendations for Physicians and Patients from the U.S. Multi-Society Task Force on Colorectal Cancer Screening , Am J Gastroenterology 2017; 112:9365-4644. TEST DESCRIPTION: Composite algorithmic analysis of stool DNA-biomarkers with hemoglobin immunoassay. Quantitative values of individual biomarkers are not reportable and are not associated with individual biomarker result reference ranges. Cologuard is intended for colorectal cancer screening of adults of either sex, 45 years or older, who are at average-risk for colorectal cancer (CRC). Cologuard has been approved for use by the U.S. FDA. The performance of Cologuard was established in a cross sectional study of average-risk adults aged 50-84. Cologuard performance in patients ages 45 to 49 years was estimated by sub-group analysis of near-age groups. Colonoscopies performed for a positive result may find as the most clinically significant lesion: colorectal cancer [4.0%], advanced adenoma (including sessile serrated polyps greater than or equal to 1cm diameter) [20%] or non- advanced adenoma [31%]; or no colorectal neoplasia [45%]. These estimates are derived from a prospective cross-sectional screening study of 10,000 individuals at average risk for colorectal cancer who were screened with both Cologuard and colonoscopy. (Kassy Shi, N Engl J Med 2014;370(14):7232-9936.) Cologuard may produce a false negative or false positive result (no colorectal cancer or precancerous polyp present at colonoscopy follow up). A negative Cologuard test result does not guarantee the absence of CRC or advanced adenoma (pre-cancer). The current Cologuard screening interval is every 3 years. ([place] Cancer Society and U.S. Multi-Society Task Force). Cologuard performance data in a 10,000 patient pivotal study using colonoscopy as the reference method can be accessed at the following location: www.Refer.com.DUQI.COM/results. Additional description of the Cologuard test process, warnings and precautions can be found at www.cologuard.com. Stool 11/29/2022 6:15 AM SECURITY GUARD DISPATCHER 11/30/2022 2:32 PM SECURITY GUARD DISPATCHER Hiral Corral MD LAB BODY FLUIDS AND STOOLS ORDERABLES Final Result Performing Organization Address City/State/[place] Co de Phone Number [email or web address] (CLIA #:[id number]) [place] [address] * Diabetic Foot Exam (04/10/2021) Historical Provider HEALTH MAINTENANCE Final Result from Last 3 Months or Most Recently Relevant to Health Maintenance Insurance [facility] [employer] Care Teams Granite Worker Relationship Specialty Start Date End Date Hiral Corral MD [address] [facility] [address] [address] PCP - General Internal Medicine 03/27/19
--- NOTE | 2025-10-16 07:04 | WPDHPUPDATE1 ---
History and Physical Update Update Date/Time: 10/16/25 07:04 History and Physical has been reviewed, including an updated exam of the patient. There are NO changes in the patient's condition. Risks, benefits, and alternatives have been discussed and questions answered. Patient agrees to proceed with procedure.
[2025-10-16] MEDS: ACETAMINOPHEN 500 MG TABLET 1000 MG PO (09:30)
[2025-10-16] MEDS: LACTATED RINGERS 1,000 ML 30 ML IV CONT (09:30)
[2025-10-16] MEDS: KETOROLAC 15 MG/ML VIAL (*BKC) IV PUSH (09:30)
--- NOTE | 2025-10-16 09:51 | W.PM.PROC2 ---
Procedure Note - Detailed Date of Procedure 10/16/25 Pre-op Diagnosis umbilical hernia with 5cm defect Post-op Diagnosis Same Procedure Performed Robotic laparoscopic repair umbilical hernia with 5 cm defect with mesh Surgeon Juan Handy MD Environmental Maintenance Worker Timmy STARR Anesthesia General and Local Indications Patient has long-standing umbilical hernia. The skin overlying the hernia has become dusky and he developed an ulcer where umbilical skin is rubbing against the distended umbilical skin. The hernia is getting larger. Findings Longstanding umbilical hernia with 5 cm defect. Bowel and omentum more herniated. Umbilical skin stretched very thin Description of Procedure The patient was taken to surgery and induced into general anesthesia. The abdomen was prepped and draped. He had a bump under his left hip and the table was flexed in the middle. Trocars were placed in the usual fashion starting with an applied Medical 5 mm optical trocar in the left subcostal position. After adequate insufflation, camera was placed the 3 robotic trocars were placed lower on the left side of the abdomen under direct visualization. Looking at the hernia, there was bowel and omentum protruding through the hernia and into the hernia. Fortunately, I was able to gently reduce the herniated content completely. The robotic arms were brought into the field. The camera was docked and targeted. The working instruments were positioned appropriately. The surgeon then went to the robotic console. The fatty contents of the umbilical her hernia were gradually reduced. Properitoneal fat in the midline of the abdomen was carefully dissected away in both the cephalad and caudad direction such that applied mesh would be in direct apposition to the posterior abdominal wall. The falciform ligament was likewise dissected and partially taken down from the anterior abdominal wall. There was a very large hernia sac which I was able to reduce and remove. The 5 mm applied Medical port was changed to a 10 11 port for removal of the hernia sac. The hernia defect itself was 5 cm longitudinally and 2 cm in transverse dimension. I then used 0 Stratafix suture and closed the defect. 10 x [address] hernia mesh patch was then introduced into the abdominal cavity. The mesh was unrolled and positioned appropriately on the anterior abdominal wall. The needle from the Stratafix suture was passed through the center of the mesh and the mesh was gradually worked up so that it was snug to the previous her hernia defect closure. I then used running 2 0 V lock suture and sutured the mesh to the anterior abdominal wall under a mild degree of tension. This went well and the mesh appeared to be in very good position and centered over the hernia repair. I then used residual V lock as well as the residual Stratafix suture and, in running fashion, suture the midportion of the mesh to the anterior abdominal wall to facilitate better fixation. We then removed all needles and any residual suture. A Vadim cone and 0 Vicryl suture was used to close the fascia at the 10 11 port site in left upper quadrant. Instruments were removed and the robot was undocked. CO2 was evacuated from the abdominal cavity. Skin wounds were closed with subcuticular 4-0 Monocryl skin suture. The wounds were dressed with Exofin surgical adhesive. Patient was awakened and taken to recovery in good condition. Sponge and needle counts were correct x2. Estimated Blood Loss -10 Drains No Packing No Pathology None sent Complications None Condition Stable Disposition PACU [facility] Billing Surgery - Charge Forward: Surgery Billing (Robotic laparoscopic repair 5 cm umbilical hernia with mesh)
--- NOTE | 2025-10-16 10:21 | WPDANESEPPF ---
Anes - Initial Pre Proc Eval Procedure: Operation Date: 10/16/25 10:00 Proposed Procedures p Robotic Repair Umbilical Hernia with Mesh - Juan Handy MD Date/Time: 10/16/25 10:21 Surgeon: Juan Handy MD Pre Op Diagnosis: umbilical hernia with 5cm defect Patient Data Age: 55 Gender: M Height: 1.8 m Weight: 154.5 kg Allergies Allergy/AdvReac Type Severity Reaction Status Date / Time Penicillins Allergy Intermediate Rash Verified 10/08/25 09:58 Home Medications ?Medication ?Instructions ?Recorded ?Confirmed ?Type amlodipine 10 mg tablet 10 mg PO DAILY 07/07/20 10/08/25 History losartan 50 mg tablet 50 mg PO DAILY 07/07/20 10/08/25 History spironolactone 25 mg tablet 25 mg PO DAILY #30 tabs 01/01/22 10/08/25 Rx apixaban 5 mg tablet (Eliquis) 5 mg PO BID 01/28/25 10/08/25 History Held on 10/16/25. Instructions: Resume on 10/19/25. oxycodone-acetaminophen 5 mg-325 1 - 2 tablet PO Q6H PRN pain #20 10/16/25 Rx mg tablet (Percocet) tabs Patient hx anesthesia problems: none Family hx anesthesia problems: none Results Review: All pre-operative results and documents have been reviewed as part of the pre-operative evaluation. [facility] Past Medical History Medical History Diabetes Hypertension Surgical History Surgical History No significant past surgical history Family History Family History Father , at age 49 Brain aneurysm Mother , had 2 episodes of cancer unknown type to patient Cancer Social History Social History Smoking status: Never smoker Tobacco type: cigarettes Second hand tobacco smoke exposure: No Alcohol intake: current Substance use: never Concerned About Future Housing: Decline to Answer Difficulty Paying Gas/Electric Bills: Decline to Answer Difficulty Paying for Meds: Decline to Answer Currently Unemployed: Decline to Answer Difficulty w/ Childcare or Family Care: Decline to Answer Living arrangements: with family Occupation/Education: occupation Gender identity (if verbalized by the patient): Male Sexual Orientation (if Verbalized by the Patient): Straight or Heterosexual Spiritual care concerns: No Anes - Eval Final PreProcedure Day of Procedure 10/16/25 10:21 Patient weight: morbidly obese Heart: regular rate and rhythm Lungs: clear to auscultation Airway: Mallampati scale class II Neurological: alert and oriented Last oral intake: >/= 8 hours ASA classification: III Emergent: no Anesthetic plan: proceed Anesthesia type and monitoring: general ETT and standard monitoring Results Review: All pre-operative results and documents have been reviewed as part of the pre-operative evaluation. Informed Consent: The patient's anesthetic plan and its attendant risks and benefits were discussed with the patient/family/POA. Questions were solicited and answers provided to the satisfaction of the patient/family/POA.
[2025-10-16] MEDS: SCOPOLAMINE 1 MG PATCH 1 PATCH TRANSDERM (10:24)
[2025-10-16] MEDS: ceFAZolin 3 GM/D5W 100 ML 100 ML IVPB (10:30)
[2025-10-16] MEDS: BUPIVACAINE/EPINEPHRINE 0.5% 30 ML VIAL INFILTRATE (11:11)
--- NOTE | 2025-10-16 11:35 | S_PTH ---
PATIENT: Pierce Smith LOC: [facility] U#:[id number] AGE/SX: 55/M ROOM: RE10/16/[address]: Juan Handy MD : 1970 BED: DIS: 10/16/2025 SPEC #: [id number] RECD: 10/16/25 13:31 STATUS: MAINE REYann #: [id number] MEHUL: 10/16/25 11:[address]: Juan Handy DEPT: [facility] Surgical RECD BY: Anabela Millard ENTERED: 10/16/25 13:31 SP TYPE: Surgical OTHR DR: Hiral CorralMD Tissues: A - Hernia Sac Procedures: Gross and Microscopic Level 2 Hematoxylin and Eosin Stain
[2025-10-16] MEDS: fentaNYL CITRATE INJ (*CRX) 100 MCG/2 ML VIAL 25 MCG IV PUSH ×5 (13:18→13:40)
[2025-10-16] MEDS: oxyCODONE HCL (*CRX) 5 MG TAB IR PO (14:20)
== END 2025-10-16 15:26 | disposition home or self-care (01) ==
PROVIDERS: PCP Internal Medicine; Visit Provider Surgery
PROC: (CPT 49593; principal; 2025-10-16 10:00)
DX: K42.9 Umbilical hernia without obstruction or gangrene (principal); E66.01 Morbid (severe) obesity due to excess calories; Z68.42 Body mass index [BMI] 45.0-49.9, adult
CPT/HCPCS: 49593; S2900; 88302; A9270; C1781; J0690; J1100; J1885; J2003; J2250; J2405; J2704; J3010; J7120